=== PATIENT | female | born 1955 | race Caucasian/White ===

== ENCOUNTER → 2016-12-17 | Outpatient (CLI) | payer OTHER ==
[~2016-12-17] MED LIST: CALC-393 PO; EPP3/2 IM; LOSA50TA6 PO; PRED10TA PO
[2016-12-17 15:49] LABS: BASO % 0.4 %; BASO ABS # 0.03 K/uL (0-0.2); COMPLETE YES; EOS % 2.3 %; HEMATOCRIT 37.4 % (37-47); IG% 0.1 %; LYMPH % 29.4 %; LYMPH ABS # 2.04 K/uL (1.2-3.4); MEAN CELL VOLUME 87.8 fL (80-100); MEAN CORPUSCULAR HGB CONC 35.3 g/dl (32-36); MEAN PLATELET VOLUME 9.6 fL (7.4-10.4); MONO % 4.5 %; NEUT % 63.3 %; PLATELET COUNT 296 K/uL (130-400); RED BLOOD COUNT 4.26 M/uL (4.2-5.4); WHITE BLOOD COUNT 6.95 K/uL (4.8-10.8)
[2016-12-17 16:08] LABS: BLOOD UREA NITROGEN 19 mg/dl (7-18); BUN/CREATININE RATIO 18.5 (10-20); CALCIUM 9.2 mg/dl (8.5-10.1); CARBON DIOXIDE 32 mmol/L (21-32); CHLORIDE 107 mmol/L (98-107); GLUCOSE 117 mg/dl (70-99); POTASSIUM 3.7 mmol/L (3.5-5.1); SODIUM 144 mmol/L (136-145)
== END | disposition home or self-care (01) ==
LOC: C.CPL 14:24
PROVIDERS: ATTEND Orthopaedic Surgery
DX: Z01.810 Encounter for preprocedural cardiovascular examination (principal); Z01.812 Encounter for preprocedural laboratory examination; S83.272A Complex tear of lateral meniscus, current injury, left knee, initial encounter; X58.XXXA Exposure to other specified factors, initial encounter; R94.31 Abnormal electrocardiogram [ECG] [EKG]

== ENCOUNTER 2020-12-06 08:30 | Observation (INO) ==
[2020-12-06] MEDS ORDERED: ASPIRIN CHEW 324 MG PO STA (08:46)
[2020-12-06] MEDS: NITROGLYCERIN SL 0.4 MG/TAB TAB SL PRN ×3 (08:54→09:09)
[2020-12-06 09:01] LABS: Basophils # (auto) 0.03 K/uL (0-0.2); Basophils % (auto) 0.5 %; Eosinophils # (auto) 0.18 K/uL (0-0.5); Eosinophils % (auto) 2.9 %; Hematocrit (blood only) 41.3 % (37-47); Hemoglobin 14.6 g/dL (12.0-16.0); Immature Granulocytes # (auto) 0.01 K/uL (0.00-0.02); Immature Granulocytes % (auto) 0.2 %; Lymphocytes # (auto) 1.85 K/uL (1.2-3.4); Lymphocytes % (auto) 29.8 %; Mean Corpuscular Hemoglobin 30.9 pg (25-34); Mean Corpuscular Hgb Conc 35.4 g/dL (32-36); Mean Corpuscular Volume 87.5 fL (80-100); Mean Platelet Volume 9.1 fL (7.4-10.4); Monocytes # (auto) 0.29 K/uL (0.11-0.59); Monocytes % (auto) 4.7 %; Neutrophils # (auto) 3.85 K/uL (1.4-6.5); Neutrophils % (auto) 61.9 %; Platelet Count 292 K/uL (130-400); RDW Coefficient of Variation 12.3 % (11.5-14.5); RDW Standard Deviation 39.5 fL (36.4-46.3); Red Blood Count 4.72 M/uL (4.2-5.4); White Blood Count 6.21 K/uL (4.8-10.8)
--- NOTE | 2020-12-06 09:02 | Emergency Department Note ---
Impression & Plan Chest pain ED Provider Note CHIEF COMPLAINT: Chest pain HISTORY OF PRESENTING ILLNESS: This is a 65-year-old female who presents to the emergency department by private vehicle with complaint of chest pain that has been persistently worsening over the past 1 week. Patient states the pain was initially somewhat intermittent, but became more constant over the past 2 days. She states the pain was severe enough to keep her awake through the night last night and she did not sleep much. She describes the chest pain as a tightness and pressure, it does radiate to her neck/jaw, is worse with exertion and better with rest, and she currently rates the pain 7/10. She has not tried anything f or her pain. She has had some associated shortness of breath and nausea. She denies any lightheadedness or syncope. She denies any vomiting. She denies any cough or hemoptysis. She denies any leg pain or swelling. She denies any history of heart disease for herself and has never had a blood clot. She does note family history, both her father and her sister have had heart attacks. She also has a history of hypertension. She is not a smoker. She denies any other symptoms of headache, neck pain, back pain, abdominal pain, diarrhea or constipation, urinary complaints, or unusual rash. REVIEW OF SYSTEMS: A complete 10 point review of systems was reviewed with the patient with pertinent positives and negatives as per history of present illness. All else were negative. PAST MEDICAL HISTORY: Hypertension, history of , tubal ligation, colonoscopy, appendectomy, partial hysterectomy, carpal tunnel syndrome, parotid gland removal, history of breast cancer in remission SOCIAL HISTORY: Lives at home, she denies tobacco use ALLERGIES: Reviewed in chart and with the patient PHYSICAL EXAM: CONSTITUTIONAL: Pleasant and cooperative. Nontoxic-appearing and in no acute distress. Well appearing and well nourished. HEENT: Normocephalic, atraumatic. NECK: Supple, full active range of motion without discomfort. No JVD RESPIRATORY: Clear to auscultation bilaterally with no wheezing, crackles, rhonchi or stridor. Equal expansion bilaterally. CARDIOVASCULAR: Regular rate and rhythm with no murmurs, rubs or gallops. Normal peripheral perfusion, 2+ distal pulses in all 4 extremities. No pitting edema. GASTROINTESTINAL: Soft, nontender, nondistended. No palpable masses or HSM. Bowel sounds present in all quadrants. MUSCULOSKELETAL: Full range of motion of all joints without discomfort. INTEGUMENTARY: No rash or other significant dermatologic conditions noted. NEUROLOGIC: Alert and oriented X 4 with normal affect. ED COURSE AND MEDICAL DECISION MAKING: CC: Patient presenting with complaint of chest pain DIFFERENTIAL DIAGNOSIS: Includes, but not limited to acute coronary syndrome, pulmonary embolism, aortic dissection, pneumothorax, pericarditis, myocarditis, anxiety, musculoskeletal pain, GERD, costochondritis, pneumonia, among others. INTERPRETATION OF LABS: No leukocytosis, no anemia, normal platelets, no significant electrolyte abnormalities, normal renal function, normal liver enzymes and lipase. Troponin is undetectable. D-dimer negative. IMAGING: XR chest 1V portable CLINICAL HISTORY: Atypical chest pain COMPARISON STUDY: 05/08/2020 FINDINGS: The cardiac and mediastinal contours are normal. There is no evidence of focal pulmonary consolidation. There is no evidence of failure. No pleural effusions are visualized. There is slight bronchovascular crowding the lung bases. There are postsurgical changes present within the cervical spine. IMPRESSION: No active disease in the chest. EK12/06/2020 at 0835: Shows normal sinus rhythm with a rate of 75 bpm, poor waveform interpretation due to artifact, no ST elevation or depression and no ectopy by my interpretation. 12/06/2020 at 0903: Shows normal sinus rhythm with a rate of 86 bpm, normal intervals, no ST elevation or depression and no ectopy, appears unchanged from previous EKG today by my interpretation. MEDICATION RECONCILIATION: I attest that I have personally reviewed the patient's current medication list. INITIAL VITAL SIGNS REVIEW: I reviewed the patient's initial vital signs and interpret them as follows: T: Afebrile; BP: Hypertensive; HR: Within normal limits; RR: Within normal limits; Pulse Ox: Within normal limits on room air. MDM SUMMARY: Patient was evaluated at bedside, history and physical exam performed. Patient is alert and oriented, in no acute distress, resting calmly in stretcher. She is afebrile and nontoxic-appearing. She is noted to be hypertensive. She currently rates the chest pain as 7/10. Cardiac monitoring: An order was placed for continuous cardiac monitoring. The monitor shows a rate of 73 bpm with normal sinus rhythm. EKG reviewed at bedside, no acute ischemic changes. Heart score is 4, moderate risk based on age and risk factors. She is felt to be low risk for PE, a D-dimer is pending. Orders were placed at bedside for labs, 324 chewable aspirin and sublingual nitroglycerin to treat her chest pain, chest x-ray to evaluate for chest pain. Patient discussed with Dr. Stern, who agrees with my assessment, plan, and disposition. Labs and imaging reviewed as above, labs are fairly unremarkable. D-dimer is negative. Initial troponin is undetectable, a second troponin is pending at this time. A repeat EKG at 30 minutes remains un concerning, sinus rhythm with no ischemic changes noted. Chest x-ray is clear with no acute abnormalities noted. And initially had significant improvement in her chest pain after sublingual nitro, then the pain started to come back, so Nitropaste was placed and she had continued improvement in her pain, currently rating as a 3/10 after Nitropaste. I spoke on the phone with Dr. Deleon, [facility], who did feel the patient warranted admission for further evaluation of her chest pain. I spoke with with the [facility] hospitalist, who agreed to evaluate the patient for admission. COVID-19 testing was ordered for the admission. Patient reassessed multiple times throughout ED stay, she has remained hemodynamically stable and her chest pain remains improved. The patient was updated on all results and plan for admission, she was agreeable to this plan. Patient was stable at time of admission. The chart was completed utilizing [employer] Speech voice recognition software. Grammatical errors, random word insertions, pronoun errors, and incomplete sentences are an occasional consequence of this system due to software limitations, ambient noise, and hardware issues. Any formal questions or concerns about the content, text, or information contained within the body of this dictation should be directly addressed to the nurse practitioner for clarification. Past Med/Surg History Medical History Breast cancer (11/25/14) "Status post abnormal right breast mammogram Status post ultrasound-guided biopsy 11/25/2014 revealing infiltrating ductal carcinoma Estrogen receptor, progesterone receptor positive, and HER-2/claritza negative Status post lumpectomy and sentinel lymph node biopsy 12/29/2014 Stage [id number] Status post completion of radiation therapy to the right breast excisional cavity utilizing accelerated partial breast treatment completed 03/11/2015 received 3850 cGy" Hypertension Surgical History H/O colonoscopy H/O tubal ligation H/O: History of appendectomy History of carpal tunnel surgery History of parotid gland removal History of partial hysterectomy Family History Father Heart disease [place] in his late 50s, CABG x 3 Diabetes Sister Heart disease [place] at age 50 Social History Smoking Status: Never smoker Hx Alcohol Use: No Hx Substance Use: No Current Living Situation: Spouse current occupational status: retired Feels Safe at Home: Yes caffeine: Yes Physical Activity Frequency: Daily Allergies Allergies Allergy/AdvReac Type Severity Reaction Status Date / Time tetanus toxoid, adsorbed Allergy Intermediate ARMS FACE Verified 12/06/20 09:02 AND NECK SWELLS UP lisinopril Allergy Unknown cough Verified 12/06/20 09:02 Home Meds Home Medications Medication Instructions Recorded Confirmed calcium carbonate [Calcium 500] 500 mg PO QAM 05/08/20 12/06/20 losartan 100 mg PO QAM 05/08/20 12/06/20 sodium chloride [Saline Nasal] 1 spray INTRANASAL TID 12/06/20 12/06/20 Results & Data (ED) Vital Signs Vital Signs - 24 hr 12/06/20 08:35 12/06/20 08:56 12/06/20 09:01 Temperature 36.7 C Temperature Source Oral Pulse Rate 76 83 Pulse Rate from SpO2 Sensor 85 Respiratory Rate 16 14 Blood Pressure 198/94 H 186/92 H Blood Pressure Mean 128 123 Pulse Oximetry 99 97 97 Oxygen Delivery Method Room Air Room Air Sepsis Recent Fever Within 48 Hours No Sepsis New/Unexplained Change in Mental Status N/A Sepsis Action Taken by Nursing No Action Required 12/06/20 09:10 12/06/20 09:20 12/06/20 09:31 Temperature Temperature Source Pulse Rate 82 99 H 84 Pulse Rate from SpO2 Sensor 83 103 H 82 Respiratory Rate 16 17 16 Blood Pressure 164/92 H 175/90 H 156/96 H Blood Pressure Mean 116 118 116 Pulse Oximetry 97 100 98 Oxygen Delivery Method Sepsis Recent Fever Within 48 Hours Sepsis New/Unexplained Change in Mental Status Sepsis Action Taken by Nursing 12/06/20 10:00 12/06/20 10:30 12/06/20 11:00 Temperature Temperature Source Pulse Rate 67 65 67 Pulse Rate from SpO2 Sensor 67 66 Respiratory Rate 11 L 16 12 Blood Pressure 151/95 H 158/87 H 142/94 H Blood Pressure Mean 113 110 110 Pulse Oximetry 98 100 Oxygen Delivery Method Sepsis Recent Fever Within 48 Hours Sepsis New/Unexplained Change in Mental Status Sepsis Action Taken by Nursing 12/06/20 11:30 12/06/20 12:01 12/06/20 12:30 Temperature Temperature Source Pulse Rate 68 69 70 Pulse Rate from SpO2 Sensor 65 71 69 Respiratory Rate 15 21 17 Blood Pressure 162/98 H 170/108 H 173/95 H Blood Pressure Mean 119 128 121 Pulse Oximetry 100 98 99 Oxygen Delivery Method Sepsis Recent Fever Within 48 Hours Sepsis New/Unexplained Change in Mental Status Sepsis Action Taken by Nursing Laboratory Data Result diagrams: 12/06/20 08:47 12/06/20 08:47 Lab Results 12/06/20 12/06/20 12/06/20 Range/Units 08:47 08:47 08:47 WBC 6.21 (4.8-10.8) K/uL RBC 4.72 (4.2-5.4) M/uL Hgb 14.6 (12.0-16.0) g/dL Hct 41.3 (37-47) % MCV 87.5 (80-100) fL MCH 30.9 (25-34) pg MCHC 35.4 (32-36) g/dL RDW Std Deviation 39.5 (36.4-46.3) fL RDW Coeff of Nory 12.3 (11.5-14.5) % Plt Count 292 (130-400) K/uL MPV 9.1 (7.4-10.4) fL Immature Gran % (Auto) 0.2 % Neut % (Auto) 61.9 % Lymph % (Auto) 29.8 % [place] % (Auto) 4.7 % Eos % (Auto) 2.9 % Baso % (Auto) 0.5 % Neut # (Auto) 3.85 (1.4-6.5) K/uL Lymph # (Auto) 1.85 (1.2-3.4) K/uL [place] # (Auto) 0.29 (0.11-0.59) K/uL Eos # (Auto) 0.18 (0-0.5) K/uL Baso # (Auto) 0.03 (0-0.2) K/uL Immature Gran # (Auto) 0.01 (0.00-0.02) K/uL D-Dimer 480 (0-500) ug/L FEU Sodium 138 (136-145) mmol/L Potassium 3.5 (3.5-5.1) mmol/L Chloride 104 (98-107) mmol/L Carbon Dioxide 28 (21-32) mmol/L Anion Gap 6.0 (3-11) BUN 14 (7-18) mg/dl Creatinine 0.93 (0.6-1.2) mg/dl Est Cr Clr Drug Dosing 64.3 ml/min Est GFR ( Amer) 75.3 Est GFR (Non-Af Amer) 64.9 BUN/Creatinine Ratio 15.1 (10-20) Glucose 130 H (70-99) mg/dl Calcium 9.7 (8.5-10.1) mg/dl Total Bilirubin 0.8 (0.2-1) mg/dl AST 17 (15-37) U/L ALT 29 (12-78) U/L Alkaline Phosphatase 103 (45-117) U/L Troponin I < 0.015 (0-0.045) ng/ml Total Protein 7.9 (6.4-8.2) gm/dl Albumin 3.9 (3.4-5.0) gm/dl Globulin 4.0 (2.5-4.0) gm/dl Albumin/Globulin Ratio 1.0 (0.9-2) Lipase 111 (73-393) U/L COVID-19 Eval Order SARS-CoV-2, RNA, NAAT (NEGATIVE) 12/06/20 12/06/20 12/06/20 Range/Units 11:07 11:53 11:53 WBC (4.8-10.8) K/uL RBC (4.2-5.4) M/uL Hgb (12.0-16.0) g/dL Hct (37-47) % MCV (80-100) fL MCH (25-34) pg MCHC (32-36) g/dL RDW Std Deviation (36.4-46.3) fL RDW Coeff of Nory (11.5-14.5) % Plt Count (130-400) K/uL MPV (7.4-10.4) fL Immature Gran % (Auto) % Neut % (Auto) % Lymph % (Auto) % [place] % (Auto) % Eos % (Auto) % Baso % (Auto) % Neut # (Auto) (1.4-6.5) K/uL Lymph # (Auto) (1.2-3.4) K/uL [place] # (Auto) (0.11-0.59) K/uL Eos # (Auto) (0-0.5) K/uL Baso # (Auto) (0-0.2) K/uL Immature Gran # (Auto) (0.00-0.02) K/uL D-Dimer (0-500) ug/L FEU Sodium (136-145) mmol/L Potassium (3.5-5.1) mmol/L Chloride (98-107) mmol/L Carbon Dioxide (21-32) mmol/L Anion Gap (3-11) BUN (7-18) mg/dl Creatinine (0.6-1.2) mg/dl Est Cr Clr Drug Dosing ml/min Est GFR ( Amer) Est GFR (Non-Af Amer) BUN/Creatinine Ratio (10-20) Glucose (70-99) mg/dl Calcium (8.5-10.1) mg/dl Total Bilirubin (0.2-1) mg/dl AST (15-37) U/L ALT (12-78) U/L Alkaline Phosphatase (45-117) U/L Troponin I < 0.015 (0-0.045) ng/ml Total Protein (6.4-8.2) gm/dl Albumin (3.4-5.0) gm/dl Globulin (2.5-4.0) gm/dl Albumin/Globulin Ratio (0.9-2) Lipase (73-393) U/L COVID-19 Eval [email or web address] SARS-CoV-2, RNA, NAAT NEGATIVE (NEGATIVE) Administered Medications Morphine Sulfate (Morphine Sulfate 2 Mg/Ml Carp) 2 mg IV Q2H PRN PRN Reason: chest pain Stop: 12/20/20 13:06 Last Admin: 12/06/20 14:16 Dose: 2 mg Documented by: [id number] Discontinued Medications Aspirin (Aspirin Chew 324 Mg) 324 mg PO NOW STA Stop: 12/06/20 08:47 Last Admin: 12/06/20 08:54 Dose: 324 mg Documented by: [id number] Ioversol (Optiray 320 125ml) 119 ml IV ONCE ONE Stop: 12/06/20 15:58 Last Admin: 12/06/20 15:57 Dose: 119 ml Documented by: [id number] Nitroglycerin (Nitroglycerin Sl 0.4 Mg/Tab Tab) 0.4 mg SL UD PRN PRN Reason: Chest Pain Stop: 01/05/21 08:45 Last Admin: 12/06/20 09:09 Dose: 0.4 mg Documented by: [id number] Admin: 12/06/20 09:02 Dose: 0.4 mg Documented by: [id number] Admin: 12/06/20 08:54 Dose: 0.4 mg Documented by: [id number] Nitroglycerin (Nitroglycerin 2% Ointment 30gm Tube) 1 inch EXT NOW ONE Stop: 12/06/20 09:41 Last Admin: 12/06/20 09:44 Dose: 1 inch Documented by: [id number] Discharge Plan Visit Data Chief Complaint: Chest Pain Stated Complaint: CHEST PAIN - DR. REFERRED ED Provider: Tino Stern ED Midlevel Provider: Kaylin Mayo Discharge Problem: Chest pain Patient Disposition: Admitted As Inpatient Condition: Good Discharge Instructions Interventions: ED Discharge Assessment Last Done: 12/06/20 14:39
[2020-12-06 09:18] LABS: Alanine Aminotransferase 29 U/L (12-78); Albumin Level 3.9 gm/dl (3.4-5.0); Aspartate Aminotransferase 17 U/L (15-37); BUN Creatinine Ratio 15.1 (10-20); Blood Urea Nitrogen 14 mg/dl (7-18); Calcium 9.7 mg/dl (8.5-10.1); Carbon Dioxide 28 mmol/L (21-32); Chloride 104 mmol/L (98-107); Creatinine Clr Calc Pharmacy 64.3 ml/min; Est GFR (African American) 75.3; Est GFR (Non-African American) 64.9; Glucose 130 mg/dl (70-99); Lipase 111 U/L (73-393); Potassium 3.5 mmol/L (3.5-5.1); Sodium 138 mmol/L (136-145)
[2020-12-06 09:23] LABS: Alkaline Phosphatase 103 U/L (45-117); Bilirubin,Total 0.8 mg/dl (0.2-1); Total Protein 7.9 gm/dl (6.4-8.2); Troponin I < 0.015 ng/ml (0-0.045)
[2020-12-06 09:24] LABS: D Dimer 480 ug/L FEU (0-500)
--- NOTE | 2020-12-06 09:30 | XRay Report ---
XR chest 1V portable CLINICAL HISTORY: Atypical chest pain COMPARISON STUDY: 05/08/2020 FINDINGS: The cardiac and mediastinal contours are normal. There is no evidence of focal pulmonary co nsolidation. There is no evidence of failure. No pleural effusions are visualized.[ There is slight bronchovascular crowding the lung bases. There are postsurgical changes present withi n the cervical spine. IMPRESSION: No active disease in the chest. ACT 112: Negative or not required by law. Electronically signed by: Zack Guzmán M.D. 12/06/2020 9:29 AM
[2020-12-06] MEDS ORDERED: NITROGLYCERIN 2% OINTMENT 30GM TUBE EXT ONE (09:40)
[2020-12-06] MEDS ORDERED: MoRPHine SULFATE 2 MG/ML CARP IV PRN (13:07)
--- NOTE | 2020-12-06 13:31 | History & Physical Report ---
Date of Service December 06, 2020 Assessment & Plan (1) Chest pain: Ongoing chest pain x 1 week but changed over past two days - worse with exertion. Pt with risk factors for cardiac disease including HTN, obesity, and family history so will admit for observation and further work-up - Trend troponin - Monitor on telemetry - Continue nitro paste for CP/elevated BP - Check ECHO - PRN morphine if pain uncontrolled with nitro - Consult cardiology for additional recommendations - Lipid panel in AM (2) Hypertension: - Continue outpatient lorsartan Pt seen and reviewed with collaborating physician, Dr. Banegas. Plan of care discussed and as outlined above. Code status: Full code Alejandro Burton PA-C History of Present Illness Chief Complaint: Chest pain x 1 week Primary Care Provider: Rex Gilliam MD This is a 65 y/o female with a PMH of HTN who presents to the ED with chest pain x 1 week. The pt reports the onset of constant aching chest discomfort and tightness in her left upper chest about one week ago. About two days ago, the pain became a "hot stabbing" pain. Since then, it has gradually increased in severity and now radiates to her left jaw and through to her back at times. She has had associated nausea but no vomiting. She denies shortness of breath, dizziness, syncope, palpitations, ROSS, heartburn or indigestion. Pain is worse with exertion and with deep breathing but improves with lying flat. Pt is typically pretty active and does a two mile hike each morning. 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 She had similar pain in 2012 but not as severe - work-up at that time including stress test was negative. Her father and sister both had MIs in their 50s. Initial pain in the ED was a 7/10. After nitro given in ED, rates discomfort as 3/10 although starting to increase again slightly to 4-5/10. Allergies Allergy/AdvReac Type Severity Reaction Status Date / Time tetanus toxoid, adsorbed Allergy Intermediate ARMS FACE Verified 12/06/20 09:02 AND NECK SWELLS UP lisinopril Allergy Unknown cough Verified 12/06/20 09:02 Home Medications Medication Instructions Recorded Confirmed Type calcium carbonate [Calcium 500] 500 mg PO QAM 05/08/20 12/06/20 History losartan 100 mg PO QAM 05/08/20 12/06/20 History sodium chloride [Saline Nasal] 1 spray INTRANASAL TID 12/06/20 12/06/20 History Past Med/Surg History Medical History Breast cancer (11/25/14) "Status post abnormal right breast mammogram Status post ultrasound-guided biopsy 11/25/2014 revealing infiltrating ductal carcinoma Estrogen receptor, progesterone receptor positive, and HER-2/claritza negative Status post lumpectomy and sentinel lymph node biopsy 12/29/2014 Stage [id number] Status post completion of radiation therapy to the right breast excisional cavity utilizing accelerated partial breast treatment completed 03/11/2015 received 3850 cGy" Hypertension Surgical History H/O colonoscopy H/O tubal ligation H/O: History of appendectomy History of carpal tunnel surgery History of parotid gland removal History of partial hysterectomy Family History Father Heart disease [place] in his late 50s, CABG x 3 Diabetes Sister Heart disease [place] at age 50 Social History Smoking Status: Never smoker Hx Alcohol Use: No Hx Substance Use: No Preferred Language: Cymro Communication Ability: Effective Director [employer] Required: No Beliefs That Will Affect Care: None Current Living Situation: Spouse current occupational status: retired Other Information That Helps Us Care for You: No Feels Safe at Home: Yes Safety Concerns: Feels Safe At This Time caffeine: Yes Physical Activity Frequency: Daily Assistive Devices: Glasses and Hearing Aid - Bilateral Review of Systems Review of Systems: All systems reviewed & are unremarkable except as noted in HPI & below Constitutional: no fever, no chills, no sweats and no weight loss Eyes: no diplopia and no worsening vision Ear, Nose, Mouth, Throat: no nasal congestion, no sore throat and no dysphagia Respiratory: + pain on inspiration; no cough, no chest congestion, no dyspnea and no wheezing Cardiovascular: as per Subjective / HPI and + edema (by end of day, improves overnight); no dyspnea on exertion, no palpitations and no lightheadedness Gastrointestinal: as per Subjective / HPI and + nausea; no abdominal pain, no vomiting, no diarrhea/loose stools and no blood in stools Genitourinary: no dysuria, no urinary frequency and no hematuria Musculoskeletal: no back pain, no neck pain and no muscle weakness Integumentary: no rash Neurologic: no seizure-like activity, no dizziness, no syncope, no headache(s) and no confusion Psychiatric: no depression Physical Exam Constitutional: WD/WN, vitals as above no acute distress Eyes: + anicteric sclerae; no conjunctival abnormality Neck: trachea midline Respiratory: no respiratory distress and no labored breathing Auscultation: lungs clear to auscultation bilaterally; no rales, no rhonchi and no wheezes Cardiovascular: Rate/Rhythm: + abnormal rate and + abnormal rhythm Heart Sounds: no gallop, no murmur and no cardiac rub Vessels: posterior tibial pulses present and radial pulses present; no carotid bruit Extremities: no calf tenderness and no pedal edema Gastrointestinal (Abdomen): Inspection/Auscultation: normal bowel sounds; abdomen not distended Percussion/Palpation: abdomen soft; abdomen nontender Musculoskeletal: Head/Neck/Chest: normocephalic, head atraumatic and neck supple; no chest tenderness Skin: no rashes, warm and dry no jaundice Neurologic: no focal motor deficits Psychiatric: A+Ox3, euthymic affect Results & Data Results & Data ([facility]) Vital Signs (Past 12 Hours) Vital Signs Temp Pulse Resp BP Pulse Ox 12/06/20 13:00 73 14 153/87 H 99 12/06/20 12:30 70 17 173/95 H 99 12/06/20 12:01 69 21 170/108 H 98 12/06/20 11:30 68 15 162/98 H 100 12/06/20 11:00 67 12 142/94 H 12/06/20 10:30 65 16 158/87 H 100 12/06/20 10:00 67 11 L 151/95 H 98 12/06/20 09:31 84 16 156/96 H 98 12/06/20 09:20 99 H 17 175/90 H 100 12/06/20 09:10 82 16 164/92 H 97 12/06/20 09:01 83 14 186/92 H 97 12/06/20 08:56 97 12/06/20 08:35 36.7 C 76 16 198/94 H 99 Laboratory Results Laboratory Results - last 24 hr 12/06/20 12/06/20 12/06/20 08:47 08:47 08:47 WBC 6.21 RBC 4.72 Hgb 14.6 Hct 41.3 MCV 87.5 MCH 30.9 MCHC 35.4 RDW Std Deviation 39.5 RDW Coeff of Nory 12.3 Plt Count 292 MPV 9.1 Immature Gran % (Auto) 0.2 Neut % (Auto) 61.9 Lymph % (Auto) 29.8 [place] % (Auto) 4.7 Eos % (Auto) 2.9 Baso % (Auto) 0.5 Neut # (Auto) 3.85 Lymph # (Auto) 1.85 [place] # (Auto) 0.29 Eos # (Auto) 0.18 Baso # (Auto) 0.03 Immature Gran # (Auto) 0.01 D-Dimer 480 Sodium 138 Potassium 3.5 Chloride 104 Carbon Dioxide 28 Anion Gap 6.0 BUN 14 Creatinine 0.93 Est Cr Clr Drug Dosing 64.3 Est GFR ( Amer) 75.3 Est GFR (Non-Af Amer) 64.9 BUN/Creatinine Ratio 15.1 Glucose 130 H Calcium 9.7 Total Bilirubin 0.8 AST 17 ALT 29 Alkaline Phosphatase 103 Troponin I < 0.015 Total Protein 7.9 Albumin 3.9 Globulin 4.0 Albumin/Globulin Ratio 1.0 Lipase 111 COVID-19 Eval Order SARS-CoV-2, RNA, NAAT 12/06/20 12/06/20 12/06/20 11:07 11:53 11:53 WBC RBC Hgb Hct MCV MCH MCHC RDW Std Deviation RDW Coeff of Nory Plt Count MPV Immature Gran % (Auto) Neut % (Auto) Lymph % (Auto) [place] % (Auto) Eos % (Auto) Baso % (Auto) Neut # (Auto) Lymph # (Auto) [place] # (Auto) Eos # (Auto) Baso # (Auto) Immature Gran # (Auto) D-Dimer Sodium Potassium Chloride Carbon Dioxide Anion Gap BUN Creatinine Est Cr Clr Drug Dosing Est GFR ( Amer) Est GFR (Non-Af Amer) BUN/Creatinine Ratio Glucose Calcium Total Bilirubin AST ALT Alkaline Phosphatase Troponin I < 0.015 Total Protein Albumin Globulin Albumin/Globulin Ratio Lipase COVID[facility] SARS-CoV-2, RNA, NAAT NEGATIVE Diagnostic Findings Chest X-ray 12/06/20 - IMPRESSION: No active disease in the chest. Medications Administered Nitroglycerin (Nitroglycerin Sl 0.4 Mg/Tab Tab) 0.4 mg SL UD PRN PRN Reason: Chest Pain Stop: 01/05/21 08:45 Last Admin: 12/06/20 09:09 Dose: 0.4 mg Documented by: [id number] Admin: 12/06/20 09:02 Dose: 0.4 mg Documented by: [id number] Admin: 12/06/20 08:54 Dose: 0.4 mg Documented by: [id number] Discontinued Medications Aspirin (Aspirin Chew 324 Mg) 324 mg PO NOW STA Stop: 12/06/20 08:47 Last Admin: 12/06/20 08:54 Dose: 324 mg Documented by: [id number] Nitroglycerin (Nitroglycerin 2% Ointment 30gm Tube) 1 inch EXT NOW ONE Stop: 12/06/20 09:41 Last Admin: 12/06/20 09:44 Dose: 1 inch Documented by: [id number] Code Status & VTE Plan VTE Prophylaxis Plan VTE Prophylaxis will be ordered: Yes Supervising Physician Co-Signing Physician Notes 65-year-old female with CAD risk factors including hypertension and family history who presents with severe chest pain for 1 week that has progressively been worse. She reports her pain is worse with exertion and better with rest although it has not gone away completely since it started approximately 1 week ago. Cardiology was consulted and performed a abbreviated bedside echocardiogram revealing no significant valvular disease and normal left ventricular function. Physical exam as listed above. Continue plan with serial cardiac enzymes overnight and monitored on telemetry. Appreciate cardiology recommendations with respect to risk stratification with stress test in a.m. DO Bassam (1) Chest pain Chest pain type: unspecified Qualified Code(s): R07.9 - Chest pain, unspecified (2) Hypertension Hypertension type: essential hypertension Qualified Code(s): I10 - Essential (primary) hypertension
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
[2020-12-06] MEDS ORDERED: SODIUM CHLORIDE 0.65% NA SOLN 45 ML (OCEAN) PRN (15:39)
[2020-12-06] MEDS ORDERED: OPTIRAY 320 125ml IV ONE (15:57)
--- NOTE | 2020-12-06 16:15 | CT Scan Report ---
CT ANGIOGRAPHY OF THE CHEST, PULMONARY EMBOLUS PROTOCOL CLINICAL HISTORY: chest pain. pleuritic COMPARISON STUDY: Chest radiograph December 06, 2020. TECHNIQUE: Following IV administration of 119 mL of Optiray-320, helical axial images of the chest we re obtained utilizing the pulmonary embolus protocol. Maximal intensity projections and sagittal and coronal reformats were viewed on an independent 3D workstation. IV contrast was administered withou t complication. Automated exposure control was utilized for the study. A dose lowering technique wa s utilized adhering to the principles of ALARA. CT DOSE: 392.53 mGy.cm FINDINGS: No pulmonary emboli are identified. There is no thoracic aortic dissection. Mild cardiomeg elda is noted. No enlarged axillary, mediastinal or hilar lymph nodes are present. Post therapy change s within the right breast are noted. There is no consolidation to suggest pneumonia. No pneumothorax or pleural effusion is noted. Mild groundglass opacities reflect atelectasis. Bony thorax is unremark able. Visualized portions of the upper abdomen demonstrate probable hepatic steatosis. IMPRESSION: 1. No pulmonary emboli identified. 2. No acute process within the chest. 3. Mild cardiomegaly. 4. Probable hepatic steatosis. ACT 112: Negative or not required by law. Electronically signed by: Rodrick Gonzalez M.D. 12/06/2020 4:14 PM
[2020-12-06] MEDS ORDERED: MoRPHine SULFATE 2 MG/ML CARP IV STA (17:37)
--- NOTE | 2020-12-07 06:03 | Electrocardiogram Report ---
Test Reason : Blood Pressure : / mmHG Vent. Rate : 075 BPM Atrial Rate : 075 BPM P-R Int : 140 ms QRS Dur : 076 ms QT Int : 396 ms P-R-T Axes : 038 061 033 degrees QTc Int : 442 ms Normal sinus rhythm Nonspecific ST and T wave abnormality Abnormal ECG When compared with ECG of 08-MAY-2020 18:23, No significant change Confirmed by Carlos Roy ([id number]) on 12/07/2020 6:02:58 AM Referred By: ER Confirmed By:Carlos Roy
--- NOTE | 2020-12-07 06:05 | Electrocardiogram Report ---
Test Reason : Blood Pressure : / mmHG Vent. Rate : 086 BPM Atrial Rate : 086 BPM P-R Int : 138 ms QRS Dur : 080 ms QT Int : 382 ms P-R-T Axes : 036 050 045 degrees QTc Int : 457 ms Normal sinus rhythm Nonspecific T wave abnormality Abnormal ECG When compared with ECG of 06-DEC-2020 08:35, No significant change Confirmed by Carlos Roy ([id number]) on 12/07/2020 6:05:13 AM Referred By: Rex Gilliam Confirmed By:Carlos Roy
[2020-12-07 06:48] LABS: Basophils # (auto) 0.02 K/uL (0-0.2); Basophils % (auto) 0.3 %; Eosinophils # (auto) 0.17 K/uL (0-0.5); Eosinophils % (auto) 2.6 %; Hematocrit (blood only) 40.4 % (37-47); Hemoglobin 14.2 g/dL (12.0-16.0); Immature Granulocytes # (auto) 0.01 K/uL (0.00-0.02); Immature Granulocytes % (auto) 0.2 %; Lymphocytes # (auto) 1.64 K/uL (1.2-3.4); Lymphocytes % (auto) 25.4 %; Mean Corpuscular Hemoglobin 31.3 pg (25-34); Mean Corpuscular Hgb Conc 35.1 g/dL (32-36); Mean Platelet Volume 9.1 fL (7.4-10.4); Monocytes # (auto) 0.48 K/uL (0.11-0.59); Monocytes % (auto) 7.4 %; Neutrophils # (auto) 4.14 K/uL (1.4-6.5); Neutrophils % (auto) 64.1 %; Platelet Count 261 K/uL (130-400); RDW Coefficient of Variation 12.4 % (11.5-14.5); RDW Standard Deviation 39.7 fL (36.4-46.3); Red Blood Count 4.54 M/uL (4.2-5.4); White Blood Count 6.46 K/uL (4.8-10.8)
[2020-12-07 07:33] LABS: Albumin Globulin Ratio 0.9 (0.9-2); Albumin Level 3.5 gm/dl (3.4-5.0); BUN Creatinine Ratio 16.4 (10-20); Bilirubin,Total 0.8 mg/dl (0.2-1); Calcium 9.5 mg/dl (8.5-10.1); Creatinine Clr Calc Pharmacy 61.4 ml/min; Est GFR (African American) 70.7; Globulin 3.7 gm/dl (2.5-4.0); Potassium 4.3 mmol/L (3.5-5.1); Total Protein 7.2 gm/dl (6.4-8.2)
[2020-12-07] MEDS ORDERED: LOSARTAN POTASSIUM 50 MG TAB PO SCH (09:00)
--- NOTE | 2020-12-07 12:43 | Hospitalist Progress Note ---
Date of Service December 07, 2020 Assessment & Plan (1) Chest pain: Ongoing chest pain x 1 week but changed over past two days - worse with exertion. Pt with risk factors for cardiac disease including HTN, obesity, and family history so will admit for observation and further work-up As significant precordial tenderness and the pain could be secondary to costochondritis Serial troponins and EKG remain unremarkable for any ACS Continue nitro paste for CP/elevated BP Check ECHO: Left ventricle is normal in size, there is mild concentric LV hypertrophy, the basal septum is thickened and angulated consistent with sigmoid septum, LV systolic function is normal with EF 55 to 60%, no significant valvular disease, aortic root is normal in size, there is no pericardial effusion and there is grade 1 diastolic dysfunction Lipid profile noted Appreciate cardiology input and recommendation Awaiting stress test this morning (2) Hypertension: Continue outpatient lorsartan May need to add another antihypertensive to control the blood pressure Await cardiology evaluation for that Pt seen and reviewed with collaborating physician, Dr. Banegas. Plan of care discussed and as outlined above. Code status: Full code Admission and Anticipated Discharge Date Admission Date: December 06, 2020 Subjective 12/07/2020 The patient was seen and examined in medical telemetry unit She has history of hypertension and was admitted with precordial chest pain for about 1 week without any significant associated symptoms He still has minimal precordial pain which is worse with deep inspiration and movement getting radiation Review of Systems Review of Systems: All systems reviewed and are unremarkable except as noted below Cardiovascular: + chest pain (Precordial chest pain); no radiating jaw, neck or arm pain and no palpitations Physical Exam Physical Exam: Lying in bed comfortably Constitutional: well developed, well nourished and + obese Eyes: PERRL, conjunctivae normal, anicteric sclerae ENMT: external ear and nose normal, oropharynx normal Neck: trachea midline, no thyromegaly Respiratory: no respiratory distress Auscultation: lungs clear to auscultation bilaterally Cardiovascular: Rate/Rhythm: regular rate and regular rhythm Heart Sounds: no murmur Extremities: no edema Precordial tenderness Gastrointestinal (Abdomen): Inspection/Auscultation: normal bowel sounds; abdomen not distended Percussion/Palpation: abdomen soft; abdomen nontender Musculoskeletal: No acute arthritis in any joints Neurologic: Alert, awake and oriented x3 Psychiatric: A+Ox3, euthymic affect Lymphatic: no cervical or axillary lymphadenopathy Results & Data Results & Data ([facility]) Vital Signs (Past 12 Hours) Vital Signs Temp Pulse Pulse Resp BP BP Pulse Ox 12/07/20 11:08 36.9 C 79 20 169/82 H 97 12/07/20 08:02 77 12/07/20 07:17 36.9 C 69 18 161/78 H 100 12/07/20 04:00 36.9 C 65 18 178/92 H 98 Laboratory Results Short CBC 12/07/20 Range/Units 06:17 WBC 6.46 (4.8-10.8) K/uL Hgb 14.2 (12.0-16.0) g/dL Hct 40.4 (37-47) % Plt Count 261 (130-400) K/uL BMP 12/07/20 06:17 Sodium 137 Potassium 4.3 D Chloride 105 Carbon Dioxide 29 BUN 16 Creatinine 0.98 Glucose 129 H Calcium 9.5 Cardiac Enzymes 12/06/20 12/06/20 Range/Units 16:11 21:31 Troponin I < 0.015 < 0.015 (0-0.045) ng/ml Liver Function 12/07/20 Range/Units 06:17 Total Bilirubin 0.8 (0.2-1) mg/dl AST 16 (15-37) U/L ALT 27 (12-78) U/L Alkaline Phosphatase 93 (45-117) U/L Albumin 3.5 (3.4-5.0) gm/dl Medications Administered Current Inpatient Medications Losartan Potassium (Losartan Potassium 50 Mg Tab) 100 mg PO [facility] Stop: 01/06/21 08:59 Last Admin: 12/07/20 10:53 Dose: 100 mg Documented by: Morphine Sulfate (Morphine Sulfate 2 Mg/Ml Carp) 2 mg IV Q2H PRN PRN Reason: chest pain Stop: 12/20/20 13:06 Last Admin: 12/06/20 14:16 Dose: 2 mg Documented by: Sodium Chloride (Sodium Chloride 0.65% Na Soln 45 Ml ([place])) 1 sprays NA TID PRN PRN Reason: Congestion Stop: 01/05/21 15:38 (1) Hypertension Hypertension type: essential hypertension Qualified Code(s): I10 - Essential (primary) hypertension
[2020-12-07] MEDS ORDERED: amLODIPine BESYLATE 5 MG TAB PO SCH (13:15)
--- NOTE | 2020-12-07 15:25 | Cardiology Progress Note ---
Date of Service December 07, 2020 Assessment & Plan (1) Chest pain: 65-year-old female without prior history of cardiac disease but cardiovascular risk factors of hypertension and family history of heart disease who presents with persistent pain of nearly 1 days duration and stuttering sharp pain x1 week. Symptoms have some atypical features exacerbated with deep inspiration and movement. Initial evaluations have included [address] segment abnormalities and 2 troponins nondetectable. Echocardiogram performed at bedside reveals normal left her function normal aortic root size no significant valvular disease CTA of the chest unrevealing Symptoms and exam consistent with musculoskeletal pain. Recommendations treat discomfort. Treat hypertension as ordered with amlodipine No further cardiac testing indicated (2) Hypertension: Admission and Anticipated Discharge Date Admission Date: December 06, 2020 Subjective Patient seen and examined, chart, medications, telemetry reviewed. No cardiac issues observed after extensive testing including serial cardiac enzymes and EKGs. CTA of the chest without pulmonary embolus or pericardial effusion. Echocardiogram with normal LV function and wall motion Symptoms have improved but still present with movement and deep inspiration likely musculoskeletal etiology Review of Systems Review of Systems: All systems reviewed & are unremarkable except as noted in HPI & below Physical Exam Constitutional: WD/WN, vitals as above + obese Eyes: PERRL, conjunctivae normal, anicteric sclerae ENMT: external ear and nose normal, oropharynx normal Neck: trachea midline, no thyromegaly Respiratory: normal respiratory effort, lungs clear to auscultation Cardiovascular: Rate/Rhythm: regular rate and regular rhythm Heart Sounds: normal S1 and normal S2; no gallop and no murmur Palpation: normal PMI Vessels: normal carotid upstroke and radial pulses present; no JVD and no carotid bruit Extremities: + edema (Trace) Chest (Breasts): Additional Comments: Tender to palpation in Gastrointestinal (Abdomen): normal bowel sounds, soft, nontender, no hepatosplenomegaly Musculoskeletal: no cyanosis or clubbing, extremities motor strength 5/5 Skin: no rashes, warm and dry Neurologic: PERRL, EOMI, accommodation nl, no face palsy, no dysarthria Psychiatric: A+Ox3, euthymic affect Results & Data ([facility]) Vital Signs (Past 12 Hours) Vital Signs Temp Pulse Pulse Resp BP BP Pulse Ox 12/07/20 15:10 36.9 C 79 20 169/82 H 161/78 H 97 12/07/20 11:08 36.9 C 79 20 169/82 H 97 12/07/20 08:02 77 12/07/20 07:17 36.9 C 69 18 161/78 H 100 12/07/20 04:00 36.9 C 65 18 178/92 H 98 Laboratory Results Laboratory Results - last 24 hr 12/06/20 12/06/20 12/07/20 16:11 21:31 06:17 WBC 6.46 RBC 4.54 Hgb 14.2 Hct 40.4 MCV 89.0 MCH 31.3 MCHC 35.1 RDW Std Deviation 39.7 RDW Coeff of Nory 12.4 Plt Count 261 MPV 9.1 Immature Gran % (Auto) 0.2 Neut % (Auto) 64.1 Lymph % (Auto) 25.4 [place] % (Auto) 7.4 Eos % (Auto) 2.6 Baso % (Auto) 0.3 Neut # (Auto) 4.14 Lymph # (Auto) 1.64 [place] # (Auto) 0.48 Eos # (Auto) 0.17 Baso # (Auto) 0.02 Immature Gran # (Auto) 0.01 Sodium Potassium Chloride Carbon Dioxide Anion Gap BUN Creatinine Est Cr Clr Drug Dosing Est GFR ( Amer) Est GFR (Non-Af Amer) BUN/Creatinine Ratio Glucose Calcium Total Bilirubin AST ALT Alkaline Phosphatase Troponin I < 0.015 < 0.015 Total Protein Albumin Globulin Albumin/Globulin Ratio Triglycerides Cholesterol LDL Cholesterol, Calc VLDL Cholesterol, Calc HDL Cholesterol Cholesterol/HDL Ratio 12/07/20 06:17 WBC RBC Hgb Hct MCV MCH MCHC RDW Std Deviation RDW Coeff of Nory Plt Count MPV Immature Gran % (Auto) Neut % (Auto) Lymph % (Auto) [place] % (Auto) Eos % (Auto) Baso % (Auto) Neut # (Auto) Lymph # (Auto) [place] # (Auto) Eos # (Auto) Baso # (Auto) Immature Gran # (Auto) Sodium 137 Potassium 4.3 D Chloride 105 Carbon Dioxide 29 Anion Gap 4.0 BUN 16 Creatinine 0.98 Est Cr Clr Drug Dosing 61.4 Est GFR ( Amer) 70.7 Est GFR (Non-Af Amer) 61.0 BUN/Creatinine Ratio 16.4 Glucose 129 H Calcium 9.5 Total Bilirubin 0.8 AST 16 ALT 27 Alkaline Phosphatase 93 Troponin I Total Protein 7.2 Albumin 3.5 Globulin 3.7 Albumin/Globulin Ratio 0.9 Triglycerides 102 Cholesterol 183 LDL Cholesterol, Calc 98 VLDL Cholesterol, Calc 20 HDL Cholesterol 65 Cholesterol/HDL Ratio 3 Medications Administered Current Medications Amlodipine Besylate (Amlodipine Besylate 5 Mg Tab) 5 mg PO [facility] Stop: 01/06/21 13:14 Last Admin: 12/07/20 14:48 Dose: 5 mg Documented by: Losartan Potassium (Losartan Potassium 50 Mg Tab) 100 mg PO [facility] Stop: 01/06/21 08:59 Last Admin: 12/07/20 10:53 Dose: 100 mg Documented by: Morphine Sulfate (Morphine Sulfate 2 Mg/Ml Carp) 2 mg IV Q2H PRN PRN Reason: chest pain Stop: 12/20/20 13:06 Last Admin: 12/06/20 14:16 Dose: 2 mg Documented by: Sodium Chloride (Sodium Chloride 0.65% Na Soln 45 Ml ([place])) 1 sprays NA TID PRN PRN Reason: Congestion Stop: 01/05/21 15:38 (1) Hypertension Hypertension type: essential hypertension Qualified Code(s): I10 - Essential (primary) hypertension
--- NOTE | 2020-12-08 08:01 | Discharge Summary ---
Date of Service December 08, 2020 Admission HPI Per Admitting Provider This is a 65 y/o female with a PMH of HTN who presents to the ED with chest pain x 1 week. The pt reports the onset of constant aching chest discomfort and tightness in her left upper chest about one week ago. About two days ago, the pain became a "hot stabbing" pain. Since then, it has gradually increased in severity and now radiates to her left jaw and through to her back at times. She has had associated nausea but no vomiting. She denies shortness of breath, dizziness, syncope, palpitations, ROSS, heartburn or indigestion. Pain is worse with exertion and with deep breathing but improves with lying flat. Pt is typically pretty active and does a two mile hike each morning. 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 She had similar pain in 2012 but not as severe - work-up at that time including stress test was negative. Her father and sister both had MIs in their 50s. Initial pain in the ED was a 7/10. After nitro given in ED, rates discomfort as 3/10 although starting to increase again slightly to 4-5/10. Admission Exam Per Admitting Provider Constitutional: WD/WN, vitals as above no acute distress Eyes: + anicteric sclerae; no conjunctival abnormality Neck: trachea midline Respiratory: no respiratory distress and no labored breathing Auscultation: lungs clear to auscultation bilaterally; no rales, no rhonchi and no wheezes Cardiovascular: Rate/Rhythm: + abnormal rate and + abnormal rhythm Heart Sounds: no gallop, no murmur and no cardiac rub Vessels: posterior tibial pulses present and radial pulses present; no carotid bruit Extremities: no calf tenderness and no pedal edema Gastrointestinal (Abdomen): Inspection/Auscultation: normal bowel sounds; abdomen not distended Percussion/Palpation: abdomen soft; abdomen nontender Musculoskeletal: Head/Neck/Chest: normocephalic, head atraumatic and neck supple; no chest tenderness Skin: no rashes, warm and dry no jaundice Neurologic: no focal motor deficits Psychiatric: A+Ox3, euthymic affect Principal Diagnosis Chest pain-no ACS:likely secondary to costochondritis, hypertension Discharge Exam Constitutional well developed, well nourished and + obese Eyes PERRL, conjunctivae normal, anicteric sclerae ENMT external ear and nose normal, oropharynx normal Neck trachea midline, no thyromegaly Respiratory no respiratory distress Auscultation: lungs clear to auscultation bilaterally Cardiovascular Rate/Rhythm: regular rate and regular rhythm Heart Sounds: no murmur Extremities: no edema Gastrointestinal (Abdomen) Inspection/Auscultation: normal bowel sounds; abdomen not distended Percussion/Palpation: abdomen soft; abdomen nontender Psychiatric A+Ox3, euthymic affect Lymphatic no cervical or axillary lymphadenopathy Discharge Data Allergies Allergy/AdvReac Type Severity Reaction Status Date / Time tetanus toxoid, adsorbed Allergy Intermediate ARMS FACE Verified 12/06/20 09:02 AND NECK SWELLS UP lisinopril Allergy Unknown cough Verified 12/06/20 09:02 Consultations 12/06/20 11:14 ED Decision to Admit Stat 12/06/20 15:39 Consult Cardiology Routine Ordered Studies 12/06/20 15:30 CT angio chest PE protocol Routine Hospital Course (1) Chest pain: Ongoing chest pain x 1 week but changed over past two days - worse with exertion. Pt with risk factors for cardiac disease including HTN, obesity, and family history so will admit for observation and further work-up As significant precordial tenderness and the pain could be secondary to costochondritis Serial troponins and EKG remain unremarkable for any ACS Continue nitro paste for CP/elevated BP Check ECHO: Left ventricle is normal in size, there is mild concentric LV hypertrophy, the basal septum is thickened and angulated consistent with sigmoid septum, LV systolic function is normal with EF 55 to 60%, no significant valvular disease, aortic root is normal in size, there is no pericardial effusion and there is grade 1 diastolic dysfunction Lipid profile noted Appreciate cardiology input and recommendation Awaiting stress test this morning (2) Hypertension: Continue outpatient lorsartan May need to add another antihypertensive to control the blood pressure Await cardiology evaluation for that Pt seen and reviewed with collaborating physician, Dr. Banegas. Plan of care discussed and as outlined above. Code status: Full code Total Time Total Time Spent Total Time Spent (In Minutes): 35 minutes Total Time Includes: Examination of the Patient, Discharge Planning, Medication Reconciliation and Communication With Other Providers Discharge Plan Discharge Items Patient Disposition: Home - Self-Care Reason For Visit: CHEST PAIN Discharge Diagnosis: Chest pain-no ACS:likely secondary to costochondritis, hypertension Condition on Discharge: Good Activity: Resume your previous activity Non-emergency contact: Primary Care Provider Call non-emergency contact if: you have any medication questions and your symptoms worsen Follow-up/Referrals: Rex Gilliam MD [Primary Care Provider] - (Date & Time 12/13/2020 11:00 AM Provider Edwin Zapata MD Department Family [facility] ) Diet: Heart Healthy Addtl Attending Provider Instructions: You can try [id number] NSAID use like ibuprofen or Advil with food for the precordial pain We have added amlodipine for better control of the blood pressure Pending Studies at Discharge: No Stand-Alone Forms: My [facility] [employer], Smoking Cessation Medications and DC Order Prescriptions: New amlodipine [Norvasc] 5 mg Tablet 5 mg PO QAM Qty: 30 RF: 0 Continued calcium carbonate [Calcium 500] 500 mg calcium (1,250 mg) Tablet 500 mg PO QAM RF: 0 losartan 100 mg tablet 100 mg PO QAM RF: 0 sodium chloride [Saline Nasal] 0.65 % Aerosol,[place] 1 spray INTRANASAL TID RF: 0 Discharge Orders: Discharge Order (Routine); Ordered 12/07/20 Ordered By: Thad Claire Admission Data Admit Date/Time: 12/06/20 12:56 Attending Provider: Thad Claire Admit Provider: Bibi Banegas Primary Care Provider: Rex Gilliam Other Providers: Bibi Banegas ; García Deleon Other Interventions: Discharge Summary Assessment (RN) Last Done: 12/07/20 15:10
== END 2020-12-07 16:06 | disposition home or self-care (01) ==
LOC: 2N 08:30 → ED 08:30 → SUATTDRO 12:56 → 2N 14:39

== ENCOUNTER 2023-12-16 15:02 | Inpatient (IN) ==
[2023-12-16] MEDS: OPTIRAY 350 500ml IV ONE (15:30)
--- NOTE | 2023-12-16 15:30 | Electrocardiogram Report ---
Test Reason : Blood Pressure : / mmHG Vent. Rate : 070 BPM Atrial Rate : 070 BPM P-R Int : 136 ms QRS Dur : 080 ms QT Int : 430 ms P-R-T Axes : 023 060 063 degrees QTc Int : 464 ms Poor data quality, interpretation may be adversely affected Normal sinus rhythm Normal ECG When compared with ECG of 06-DEC-2020 09:03, No significant change was found Confirmed by Shaheen Durham ([id number]) on 12/16/2023 3:29:55 PM Referred By: Confirmed By:Shaheen Durham
--- NOTE | 2023-12-16 15:31 | Emergency Department Note ---
Impression & Plan Stroke-like symptoms, Hypertension, Chest pain, Acute anterior epistaxis ED Provider Note NAME: TITUS ALMEIDA AGE: 68 SEX: F : 1955 ARRIVES VIA: Walk-In INFORMANT: Patient, ED PROVIDER(S): Shaheen Wiley DO CHIEF COMPLAINT: Strokelike symptoms HPI: The patient is a 68-year-old female who has a history of diabetes as well as breast cancer who presented to the emergency department for evaluation of weakness. The patient states that she has been having chest pain symptoms for the last few weeks. She notices some pain with exertion. She finally had an appointment with her family doctor today and was seen. Around 1 PM she started noticing weakness on the left side of her face as well as tingling in her left arm. The patient was sent to the emergency department by her primary care physician for further evaluation. The patient denies having any headache. She does state that she has some neck stiffness. She denies having any back pain. She denies having any abdominal pain or difficulty breathing. The patient has never had symptoms like this before. ROS: See above HPI for pertinent positives & negatives. A total of 10 systems reviewed and were otherwise negative. PAST MEDICAL HISTORY: See Below PAST SURGICAL HISTORY: See Below FAMILY HISTORY: See Below SOCIAL HISTORY: See Below HOME MEDICATIONS: See Below ALLERGIES: See Below VITALS: See Below PHYSICAL EXAMINATION: GENERAL: Patient is awake alert in no acute distress patient is resting comfortably and showing no signs of anxiety EYES: The conjunctivae are clear. The pupils are round and reactive. EARS, NOSE, MOUTH AND THROAT: The nose is without any evidence of any deformity. NECK: The neck is nontender and supple. RESPIRATORY: Normal respiratory effort is noted there is no evidence of wheezing rhonchi or rales CARDIOVASCULAR: Regular rate and rhythm noted there no murmurs rubs or gallops normal S1 normal S2. GASTROINTESTINAL: The abdomen is soft. Abdomen is nontender. MUSCULOSKELETAL/EXTREMITIES: There is no evidence of gross deformity full range of motion is noted in the hips and shoulders. SKIN: There is no obvious evidence of any rash. There are no petechiae, pallor or cyanosis noted. NEUROLOGIC: Patient is awake alert and oriented x3. Strength was symmetric in both upper extremities. The patient is able to hold each leg off the bed for greater than 5 seconds. There was a left-sided facial droop with forehead sparing. There was no drift in the upper extremities. MEDICAL DECISION MAKING: The patient is a 68-year-old female who presented to the emergency department for an evaluation of strokelike symptoms. The patient started having strokelike symptoms at approximately 1 to 1:30 PM. The last known well time was somewhat difficult to ascertain by the patient's recollection. She was awake alert and oriented x 3 but had left-sided facial droop and left arm tingling. The patient also described chest pain that she been having intermittently over the course the last few weeks. For this reason she was made a stroke alert. The patient was treated during a very busy time in the emergency department with multiple stroke alerts. I discussed the patient's condition with the [facility] telestroke neurologist. They were unable to help initially and we had to wait for the stroke neurologist to sign in to the cart. After evaluation they felt the patient may be a good candidate for TNK. The patient had the risks and benefits explained to her by the neurologist as well as by myself. Ultimately she was agreeable to TNK. She had to have her blood pressure managed with multiple IV medications. I discussed the patient's laboratory and radiographic studies with her. I discussed her condition with the on-call [facility] hospitalist. They have agreed to evaluate the patient in the emergency department for further management and disposition. An anterior packing given the amount of bleeding. This did seem to help the epistaxis. She was also given a TXA nebulizer. Triage Nursing notes reviewed. Prior medical records reviewed Vital Signs: reviewed and remarkable for initial hypertension. Differential diagnosis: Infection, dehydration, metabolic abnormality, hypo/hyperglycemia, electrolyte disturbance, anemia, hypoxia, cardiac sources, intracerebral event, toxicologic, neurologic, as well as other pathologies. ER treatment provided: See below Diagnostics interpreted by me: ECG: EKG was obtained in the emergency department. My interpretation is normal sinus rhythm at 70 bpm. There was a PVC noted. Nonspecific ST segment abnormalities noted. This was compared with tracing from December 06, 2020. No changes were noted. EKG from the patient's primary care physician's office was reviewed. My interpretation is normal sinus rhythm at 67 bpm. There was no ectopy. Nonspecific ST segment abnormalities were noted. This compares similar to the tracing obtained in the emergency department. Cardiac Monitoring: An order was placed for continuous cardiac monitoring. The monitor shows a rate of 79 bpm with sinus rhythm. Laboratory studies: As stated above and show below. Imaging studies: See below. Radiographic imaging was reviewed by myself Consultation(s): I discussed this case with Dr. Vaughn who is on-call for the [facility]. The patient did develop epistaxis. This was treated with I discussed this case with Dr. Amin who is on-call for the [facility] telestroke neurology group. The patient was ultimately evaluated by Dr. Del Toro. ED COURSE: Procedures: Anterior Nasal Packing Indication: Verbal consent obtained. Risks and benefits were explained with the usual customary discussion. A time out was taken. Clots were removed with suction. The naris was prepped with Afrin and lidocaine. A 5.5-cm nasal balloon was placed in a standard fashion. The patient tolerated this well. Hemostasis was achieved. No complications. Critical Care: I have personally spent greater than 55 minutes of critical care time in the direct management of this patient. This includes bedside care, interpretation of diagnostic studies, and testing, discussion with consultants, patient, and family members, and other required patient management activities. This 55 minutes is in excess of all separately billable procedures. Past Med/Surg History Medical History Controlled type 2 diabetes mellitus Breast cancer (11/25/14) "Status post abnormal right breast mammogram Status post ultrasound-guided biopsy 11/25/2014 revealing infiltrating ductal carcinoma Estrogen receptor, progesterone receptor positive, and HER-2/claritza negative Status post lumpectomy and sentinel lymph node biopsy 12/29/2014 Stage [id number] Status post completion of radiation therapy to the right breast excisional cavity utilizing accelerated partial breast treatment completed 03/11/2015 received 3850 cGy" Hypertension Surgical History H/O colonoscopy H/O tubal ligation H/O: History of parotid gland removal History of appendectomy History of partial hysterectomy History of carpal tunnel surgery Family History Father Heart disease NM in his late 50s, CABG x 3 Diabetes Sister Heart disease [place] at age 50 Social History Smoking Status: Never smoker Hx Alcohol Use: No Hx Substance Use: No Preferred Language: Setswana Communication Ability: Effective Md Psychiatry Required: No Beliefs That Will Affect Care: None Current Living Situation: Spouse current occupational status: retired Feels Safe at Home: Yes caffeine: Yes Physical Activity Frequency: Daily Assistive Devices: None Allergies Allergies Allergy/AdvReac Type Severity Reaction Status Date / Time tetanus toxoid, adsorbed Allergy Intermediate ARMS FACE Verified 12/16/23 15:56 AND NECK SWELLS UP lisinopril Allergy Unknown cough Verified 12/16/23 15:56 metformin AdvReac severe Verified 12/16/23 15:56 diarrhea Home Meds Home Medications Medication Instructions Recorded Confirmed sodium chloride 0.65 % nasal spray 1 spray intranasal TID 12/06/20 12/16/23 aerosol (Saline Nasal) losartan 100 mg tablet 100 mg PO DAILY 08/28/23 12/16/23 Previous Rx's Medication Instructions Recorded pen needle, diabetic 32 gauge x #100 ea 10/04/2132" (BD Ultra-Fine Hellen Pen Needle) insulin aspart U-100 100 unit/mL 70 unit (0.7 mL) subcut DAILY 90 08/29/23 subcutaneous solution (Novolog days #70 mL U-100 Insulin aspart) insulin glargine 100 unit/mL (3 25 unit (0.25 mL) subcut DAILY #15 08/29/23 mL) subcutaneous pen (Lantus mL Solostar U-100 Insulin) atorvastatin 10 mg tablet 10 mg PO DAILY #30 tabs 09/12/23 insulin pump cartridge,automated #1 ea 12/09/23 dose,BT with controller subcutaneous (Omnipod 5 G6 Intro Kit (Gen 5) subcutaneous cartridge with controller) insulin pump cart,automated,BT #45 ea 12/10/23 (Omnipod 5 G6 Pods (Gen 5) subcutaneous cartridge) Results & Data (ED) Vital Signs Vital Signs - 24 hr 12/16/23 15:11 12/16/23 15:25 12/16/23 15:44 Temperature 36.6 C Temperature Source Temporal Artery Scan Pulse Rate 69 90 Pulse Rate [Apical] Pulse Rate from SpO2 Sensor 88 Pulse Rhythm [Apical] Respiratory Rate 20 16 Respiratory Effort / Characteristics Respiratory Depth Respiratory Pattern Blood Pressure 195/109 H Blood Pressure [Right Arm] Blood Pressure Mean 137 Blood Pressure Mean [Right Arm] Blood Pressure Position Sitting Blood Pressure Position [Right Arm] Pulse Oximetry 100 100 Oxygen Delivery Method Room Air Sepsis Recent Fever Within 48 Hours No Sepsis New/Unexplained Change in Mental Status No Sepsis Action Taken by Nursing No Action Required 12/16/23 15:45 12/16/23 15:45 12/16/23 15:49 Temperature Temperature Source Pulse Rate 74 Pulse Rate [Apical] Pulse Rate from SpO2 Sensor 75 Pulse Rhythm [Apical] Respiratory Rate 14 Respiratory Effort / Characteristics Respiratory Depth Respiratory Pattern Blood Pressure 206/103 H 194/101 H Blood Pressure [Right Arm] Blood Pressure Mean 110 146 Blood Pressure Mean [Right Arm] Blood Pressure Position Blood Pressure Position [Right Arm] Pulse Oximetry 100 Oxygen Delivery Method Sepsis Recent Fever Within 48 Hours Sepsis New/Unexplained Change in Mental Status Sepsis Action Taken by Nursing 12/16/23 15:49 12/16/23 15:50 12/16/23 15:51 Temperature Temperature Source Pulse Rate 77 70 72 Pulse Rate [Apical] Pulse Rate from SpO2 Sensor 74 69 Pulse Rhythm [Apical] Respiratory Rate 14 18 Respiratory Effort / Characteristics Respiratory Depth Respiratory Pattern Blood Pressure 191/101 H Blood Pressure [Right Arm] Blood Pressure Mean Blood Pressure Mean [Right Arm] Blood Pressure Position Blood Pressure Position [Right Arm] Pulse Oximetry 95 100 Oxygen Delivery Method Sepsis Recent Fever Within 48 Hours Sepsis New/Unexplained Change in Mental Status Sepsis Action Taken by Nursing 12/16/23 15:53 12/16/23 15:53 12/16/23 16:10 Temperature Temperature Source Pulse Rate 65 Pulse Rate [Apical] 58 L Pulse Rate from SpO2 Sensor 67 Pulse Rhythm [Apical] Respiratory Rate 17 16 Respiratory Effort / Characteristics Non-Labored Respiratory Depth Normal Respiratory Pattern Blood Pressure 149/102 H Blood Pressure [Right Arm] 175/93 H Blood Pressure Mean 114 Blood Pressure Mean [Right Arm] 120 Blood Pressure Position Blood Pressure Position [Right Arm] Pulse Oximetry 98 100 Oxygen Delivery Method Room Air Sepsis Recent Fever Within 48 Hours Sepsis New/Unexplained Change in Mental Status Sepsis Action Taken by Nursing 12/16/23 16:15 12/16/23 16:22 12/16/23 16:40 Temperature Temperature Source Pulse Rate 58 L 60 Pulse Rate [Apical] 64 Pulse Rate from SpO2 Sensor Pulse Rhythm [Apical] Regular Respiratory Rate 17 Respiratory Effort / Characteristics Non-Labored Respiratory Depth Normal Respiratory Pattern Blood Pressure 175/93 H 200/86 H Blood Pressure [Right Arm] 197/106 H Blood Pressure Mean Blood Pressure Mean [Right Arm] 136 Blood Pressure Position Blood Pressure Position [Right Arm] Pulse Oximetry 100 Oxygen Delivery Method Room Air Sepsis Recent Fever Within 48 Hours Sepsis New/Unexplained Change in Mental Status Sepsis Action Taken by Nursing 12/16/23 16:44 12/16/23 17:07 12/16/23 17:07 Temperature Temperature Source Pulse Rate 55 L Pulse Rate [Apical] 58 L 55 L Pulse Rate from SpO2 Sensor Pulse Rhythm [Apical] Regular Respiratory Rate 20 13 Respiratory Effort / Characteristics Non-Labored Non-Labored Respiratory Depth Normal Normal Respiratory Pattern Regular Blood Pressure 168/86 H Blood Pressure [Right Arm] 223/88 H 168/86 H Blood Pressure Mean Blood Pressure Mean [Right Arm] 133 113 Blood Pressure Position Blood Pressure Position [Right Arm] Sitting Pulse Oximetry 98 99 Oxygen Delivery Method Room Air Room Air Sepsis Recent Fever Within 48 Hours Sepsis New/Unexplained Change in Mental Status Sepsis Action Taken by [facility] Medications Current Medication List: was personally reviewed by me Laboratory Data Attestation: I reviewed the patient's lab results. 12/16/23 15:25 12/16/23 15:25 Lab Results 12/16/23 12/16/23 Range/Units 15:25 15:41 WBC 7.63 (4.8-10.8) K/ul RBC 4.35 (4.20-5.40) M/uL Hgb 13.2 (12.0-16.0) g/dl Hct 38.3 (37.0-47.0) % MCV 88.0 (80.0-100.0) fL MCH 30.3 (25.0-34.0) pg MCHC 34.5 (32.0-36.0) g/dL RDW Std Deviation 41.0 (36.4-46.3) fL RDW Coeff of Nory 12.8 (11.5-14.5) % Plt Count 290 (130-400) K/uL MPV 9.0 L (9.4-12.4) fL Immature Gran % (Auto) 0.3 % Neut % (Auto) 51.9 % Lymph % (Auto) 38.0 % Culberson % (Auto) 7.2 % Eos % (Auto) 2.1 % Baso % (Auto) 0.5 % Neut # (Auto) 3.96 (1.40-6.50) K/uL Lymph # (Auto) 2.90 (1.20-3.40) K/uL [place] # (Auto) 0.55 (0.11-0.59) K/uL Eos # (Auto) 0.16 (0.00-0.50) K/uL Baso # (Auto) 0.04 (0.00-0.20) K/uL Immature Gran # (Auto) 0.02 (0.01-0.20) K/uL PT 10.3 (9.0-12.0) Seconds INR 0.9 (0.9-1.1) APTT 26 (21-31) Seconds PTT Ratio 0.9 Sodium 140 (136-145) mmol/L Potassium 3.9 (3.5-5.1) mmol/L Chloride 106 (98-107) mmol/L Carbon Dioxide 27 (21-32) mmol/L Anion Gap 7 (3-11) BUN 20 (6-23) mg/dl Creatinine 1.08 (0.6-1.2) mg/dl Est Cr Clr Drug Dosing 55.8 ml/min Est GFR ( Amer) 61.5 ml/min Est GFR (Non-Af Amer) 53.1 ml/min BUN/Creatinine Ratio 18.5 (10-20) Glucose 80 (70-99(Fasting)) mg/dl POC Glucose 71 (70-99) mg/dl Calcium 9.6 (8.6-10.3) mg/dl Magnesium 2.1 (1.7-2.4) mg/dl Total Bilirubin 0.8 (0.2-1.0) mg/dl AST 21 (13-39) U/L ALT 17 (7-52) U/L Alkaline Phosphatase 81 (34-104) U/L Troponin I High Sens 6.6 (0-14) pg/ml Total Protein 7.4 (6.0-8.3) gm/dl Albumin 4.5 (3.4-5.0) gm/dl Globulin 2.9 (2.5-4.0) gm/dl Albumin/Globulin Ratio 1.6 (0.9-2) Administered Medications Nicardipine HCl 25 mg/ Sodium (Chloride) 250 mls @ 50 mls/hr IV .Q5H TIEN; Protocol Stop: 01/15/24 18:14 Last Titration: 12/16/23 19:15 Dose: 2.5 mg/hr, 25 mls/hr Documented By: Admin: 12/16/23 18:50 Dose: 5 mg/hr, 50 mls/hr Documented By: LISA Co-signed By: ELOISA Discontinued Medications Fentanyl Citrate (Fentanyl Citrate Pf 100 Mcg/2 Ml Vial) Confirm Administered Dose 100 mcg .ROUTE .STK-MED ONE Stop: 12/16/23 18:56 Last Increment: 12/16/23 18:55 Dose: 50 mcg Documented By: LISA Hydralazine HCl (Hydralazine Hcl 20 Mg/Ml Vial) Confirm Administered Dose 20 mg .ROUTE .STK-MED ONE Stop: 12/16/23 17:51 Last Increment: 12/16/23 17:52 Dose: 10 mg Documented By: AYALA Sodium Chloride (Nss) 250 mls @ 999 mls/hr IV .Q16M ONE Stop: 12/16/23 16:48 Last Infusion: 12/16/23 16:57 Dose: Infused Documented By: Admin: 12/16/23 16:41 Dose: 999 mls/hr Documented By: AYALA Magnesium Sulfate/Dextrose (Magnesium Sulfate / D5w) 1 gm in 100 mls @ 100 mls/hr IV Q1H TIEN Stop: 12/16/23 18:32 Last Infusion: 12/16/23 18:26 Dose: Infused Documented By: LISA(2) Admin: 12/16/23 17:38 Dose: 100 mls/hr Documented By: LISA(2) Infusion: 12/16/23 17:38 Dose: Infused Documented By: LISA(2) Admin: 12/16/23 16:41 Dose: 100 mls/hr Documented By: AYALA Tenecteplase 23 mg/ Syringe 4.6 mls @ 55.2 mls/min IV NOW ONE; Protocol Stop: 12/16/23 16:51 Last Admin: 12/16/23 16:47 Dose: 55.2 mls/min Documented By: AYALA Co-signed By: LISA(2) Ioversol (Optiray 350 500ml) 116 ml IV ONCE ONE Stop: 12/16/23 15:31 Last Admin: 12/16/23 15:30 Dose: 116 ml Documented By: LEORA Labetalol HCl (Labetalol Hcl Iv 5 Mg/Ml 20ml) Confirm Administered Dose 10 mg IV .STK-MED ONE Stop: 12/16/23 15:51 Last Admin: 12/16/23 15:52 Dose: Not Given Documented By: EMILEE Labetalol HCl (Labetalol Hcl Iv 5 Mg/Ml 20ml) 10 mg IV NOW STA Stop: 12/16/23 15:51 Last Admin: 12/16/23 15:51 Dose: 10 mg Documented By: EMILEE Co-signed By: WAGNER Labetalol HCl (Labetalol Hcl Iv 5 Mg/Ml 20ml) 10 mg IV NOW STA Stop: 12/16/23 16:25 Last Admin: 12/16/23 16:33 Dose: 10 mg Documented By: AYALA Co-signed By: LISA(2) Labetalol HCl (Labetalol Hcl Iv 5 Mg/Ml 20ml) 10 mg IV NOW STA Stop: 12/16/23 16:55 Last Admin: 12/16/23 16:55 Dose: 10 mg Documented By: AYALA Co-signed By: LISA(2) Labetalol HCl (Labetalol Hcl Iv 5 Mg/Ml 20ml) 10 mg IV NOW STA Stop: 12/16/23 17:44 Last Admin: 12/16/23 17:44 Dose: 10 mg Documented By: LISA(2) Co-signed By: AYALA Magnesium Sulfate/Dextrose (Magnesium Sulfate 1gm / D5w Bag) Confirm Administered Dose 2 gm IV .STK-MED ONE Stop: 12/16/23 16:31 Last Admin: 12/16/23 16:33 Dose: 2 gm Documented By: AYALA Miscellaneous (Stat Iv/Im) 1 each N/A NOW STA Stop: 12/16/23 16:41 Last Admin: 12/16/23 16:48 Dose: 1 each Documented By: AYALA Oxymetazoline HCl (Oxymetazoline 0.05% 30 Ml Btl) 1 sprays NA NOW ONE Stop: 12/16/23 17:55 Last Admin: 12/16/23 18:01 Dose: 1 sprays Documented By: LISA(2) Sodium Chloride (Sodium Chloride 0.9% 10ml Flush) 20 ml IV NOW STA Stop: 12/16/23 16:41 Last Admin: 12/16/23 16:48 Dose: 20 ml Documented By: AYALA Tranexamic Acid (Txa 10% Non-Iv Routes 100 Mg/Ml Vial) Confirm Administered Dose 1,000 mg .ROUTE .STK-MED ONE Stop: 12/16/23 17:55 Last Admin: 12/16/23 18:02 Dose: Not Given Documented By: LISA(2) Tranexamic Acid (Txa 10% Non-Iv Routes 100 Mg/Ml Vial) 250 mg NEB ONE ONE Stop: 12/16/23 17:55 Last Admin: 12/16/23 18:02 Dose: 250 mg Documented By: LISA(2) Imaging Data Attestation: I personally reviewed and interpreted this imaging study as follows: My Impression: CT of the brain was obtained in the emergency department. My interpretation is no free air or definite infiltrate, final report below. CT of the chest was obtained in the emergency department. My interpretation is no free air or definite filtrate, final report below. Radiologist's Impression: Chest CTA 12/16/23 15:19 CT angio chest PE protocol CLINICAL HISTORY: PE TECHNIQUE: Multidetector row helical CT of the chest was performed with angiographic protocol. Coronal and sagittal reformations were obtained. Coronal and sagittal MIPS were obtained from the axial data set and were submitted for review. Automated dose lowering techniques and/or adjustment according to patient size were utilized for this exam. Comparison: Comparison is made to CTA chest 12/06/2020 FINDINGS: Lungs and pleura: Normal. Heart and pericardium: Heart size is normal. No pericardial effusion. Vessels: No evidence of pulmonary embolism. Mediastinum and vega: Unremarkable. Chest wall and lower neck: Unremarkable. Abdomen: Unremarkable. Bones: Degenerative changes in the thoracic spine. ACDF is seen. IMPRESSION: No acute abnormality and in particular no evidence of pulmonary embolus. ACT 112: Negative or not required by law. Electronically signed by: Ronaldo Mattson M.D. 12/16/2023 4:[address] 12/16/23 15:20 CT SCAN OF THE BRAIN WITHOUT IV CONTRAST CLINICAL HISTORY: Neurological deficit. Stroke like symptoms. COMPARISON STUDY: CT of the brain dated 06/07/2016. TECHNIQUE: Unenhanced axial CT scan of the brain is performed from the vertex to the skull base. A dose lowering technique was utilized adhering to the principles of ALARA. CT DOSE: 1967.06 mGy.cm FINDINGS: Brain parenchyma: There is age-related involutional change noting mild subcortical and periventricular microangiopathic disease. There is no hemorrhage, mass effect, or evidence of acute territorial ischemia by CT criteria. Mineralization is noted in the basal ganglia. Jo-white matter differentiation is preserved. No extra-axial fluid collection is seen. Ventricles, sulci, cisterns: Prominent secondary to involutional change. Intracranial vasculature: There is atherosclerotic calcification of the cavernous carotid and vertebral arteries. Calvarium: Unremarkable. Sinuses and mastoids: Postoperative changes partially visualized in the maxillary antra. The visualized paranasal sinuses are clear. The mastoid air cells are well pneumatized. Orbits: The bony orbits are grossly intact. IMPRESSION: There is no hemorrhage, mass effect, or evidence of acute territorial ischemia by CT criteria. ACT 112: Negative or not required by law. Electronically signed by: Félix Ward M.D. 12/16/2023 3:55 PM Head CTA 12/16/23 15:20 CTA ANGIOGRAPHY OF THE HEAD CLINICAL HISTORY: neuro deficit, acute stroke suspected COMPARISON STUDY: MRA of the head June 07, 2016. TECHNIQUE: Helical axial images of the head were obtained following uneventful intravenous administration of 116 cc of Optiray. Sagittal and coronal reconstructions were viewed as well as maximal intensity projections on an independent 3-D workstation. Automated exposure control was utilized for the study. A dose lowering technique was utilized adhering to the principles of ALARA. FINDINGS: No acute intracranial hemorrhage is identified on the head CT which will be reported separately. The bilateral M1, M2, A1 and A2 segments are patent. There is no central vessel occlusion. There is no intracranial aneurysm. Posterior circulation is intact. There are bilateral posterior communicating arteries. There are postoperative findings within the maxilla and nasal bones. IMPRESSION: No central vessel occlusion. No intracranial aneurysm. ACT 112: Negative or not required by law. Electronically signed by: Rodrick Gonzalez M.D. 12/16/2023 4:10 PM Neck CTA 12/16/23 15:20 CT ANGIOGRAM OF THE NECK CLINICAL HISTORY: Neurological deficit. Stroke like symptoms. COMPARISON STUDY: No priors. TECHNIQUE: Following the IV administration of 116 of Optiray 350, CT angiogram of the neck was performed from the aortic arch to the skull base. Images are reviewed in the axial, sagittal, and coronal planes. 3-D MIPS images are created and assessed. IV contrast was administered without complication. All measurements were calculated based on NASCET criteria. A dose lowering technique was utilized adhering to the principles of ALARA. FINDINGS: Thoracic aorta: Visualized portions of the thoracic aorta are normal in caliber. The aortic arch demonstrates standard 3-vessel anatomy. Right carotid arterial system: The right common carotid artery is widely patent, as are the right internal and external carotid arteries. Left carotid arterial system: The left common carotid artery is widely patent, as are the left internal and external carotid arteries. Mild calcified plaque is seen in the carotid bulb. Vertebral arteries: The vertebral arteries are widely patent bilaterally and codominant. Subclavian arteries: Widely patent bilaterally. Intracranial vasculature: The visualized intracranial vessels at the skull base are patent. Jugular veins: Widely patent bilaterally. Brain parenchyma: The visualized brain parenchyma the skull base is within normal limits. Lung apices: Partially visualized upper lobe lung parenchyma appears clear. Soft tissues: The visualized pharyngeal soft tissues are normal in appearance noting angiographic phase technique. The oropharyngeal airway appears widely patent. There is asymmetric atrophy of the left parotid gland as compared to the right. The thyroid gland is normal in appearance. No cervical lymphadenopathy is seen. Skeletal structures: The visualized calvarium at the skull base appears intact. Postsurgical and degenerative change is noted in the cervical spine. Sinuses and mastoids: Postsurgical changes noted in the maxillary antra. The visualized nasal sinuses are clear. The mastoid air cells are well pneumatized. IMPRESSION: Unremarkable CT angiogram of the neck. ACT 112: Negative or not required by law. Electronically signed by: Félix Ward M.D. 12/16/2023 3:59 PM Discharge Plan Visit Data Chief Complaint: Chest Pain Stated Complaint: CHEST PAINS, ABNORMAL EKG ED Provider: Shaheen Wiley Discharge Problem: Stroke-like symptoms, Hypertension, Chest pain, Acute anterior epistaxis Patient Disposition: Admitted As Inpatient Discharge Instructions Interventions: ED Discharge Assessment Last Done: 12/16/23 18:41 Discharge Problem: Hypertension Qualifiers: Hypertension type: unspecified Qualified Code(s): I10 - Essential (primary) hypertension Chest pain Qualifiers: Chest pain type: unspecified Qualified Code(s): R07.9 - Chest pain, unspecified
[2023-12-16 15:47] LABS: Basophils # (auto) 0.04 K/uL (0.00-0.20); Basophils % (auto) 0.5 %; Eosinophils # (auto) 0.16 K/uL (0.00-0.50); Eosinophils % (auto) 2.1 %; Hematocrit (blood only) 38.3 % (37.0-47.0); Hemoglobin 13.2 g/dl (12.0-16.0); Immature Granulocytes # (auto) 0.02 K/uL (0.01-0.20); Immature Granulocytes % (auto) 0.3 %; Mean Corpuscular Hemoglobin 30.3 pg (25.0-34.0); Mean Corpuscular Hgb Conc 34.5 g/dL (32.0-36.0); Monocytes # (auto) 0.55 K/uL (0.11-0.59); Monocytes % (auto) 7.2 %; Neutrophils # (auto) 3.96 K/uL (1.40-6.50); Neutrophils % (auto) 51.9 %; Platelet Count 290 K/uL (130-400); RDW Coefficient of Variation 12.8 % (11.5-14.5); Red Blood Count 4.35 M/uL (4.20-5.40); White Blood Count 7.63 K/ul (4.8-10.8)
[2023-12-16] MEDS: LABETALOL HCL IV 5 MG/ML 20ML IV STA ×4 (15:51→17:44)
[2023-12-16] MEDS: LABETALOL HCL IV 5 MG/ML 20ML IV ONE (15:52)
--- NOTE | 2023-12-16 15:56 | CT Scan Report ---
CT SCAN OF THE BRAIN WITHOUT IV CONTRAST CLINICAL HISTORY: Neurological deficit. Stroke like symptoms. COMPARISON STUDY: CT of the brain dated 06/07/2016. TECHNIQUE: Unenhanced axial CT scan of the brain is performed from the vertex to the skull base. A do se lowering technique was utilized adhering to the principles of ALARA. CT DOSE: 1967.06 mGy.cm FINDINGS: Brain parenchyma: There is age-related involutional change noting mild subcortical and periventricula r microangiopathic disease. There is no hemorrhage, mass effect, or evidence of acute territorial isc hemia by CT criteria. Mineralization is noted in the basal ganglia. Jo-white matter differentiation is preserved. No extra-axial fluid collection is seen. Ventricles, sulci, cisterns: Prominent secondary to involutional change. Intracranial vasculature: There is atherosclerotic calcification of the cavernous carotid and vertebr al arteries. Calvarium: Unremarkable. Sinuses and mastoids: Postoperative changes partially visualized in the maxillary antra. The visualiz ed paranasal sinuses are clear. The mastoid air cells are well pneumatized. Orbits: The bony orbits are grossly intact. IMPRESSION: There is no hemorrhage, mass effect, or evidence of acute territorial ischemia by CT nayan esqueda. ACT 112: Negative or not required by law. Electronically signed by: Félix Ward M.D. 12/16/2023 3:55 PM
--- NOTE | 2023-12-16 16:00 | CT Scan Report ---
CT ANGIOGRAM OF THE NECK CLINICAL HISTORY: Neurological deficit. Stroke like symptoms. COMPARISON STUDY: No priors. TECHNIQUE: Following the IV administration of 116 of Optiray 350, CT angiogram of the neck was perfor med from the aortic arch to the skull base. Images are reviewed in the axial, sagittal, and coronal p lanes. 3-D MIPS images are created and assessed. IV contrast was administered without complication. A ll measurements were calculated based on NASCET criteria. A dose lowering technique was utilized adh ering to the principles of ALARA. FINDINGS: Thoracic aorta: Visualized portions of the thoracic aorta are normal in caliber. The aortic arch demo nstrates standard 3-vessel anatomy. Right carotid arterial system: The right common carotid artery is widely patent, as are the right int ernal and external carotid arteries. Left carotid arterial system: The left common carotid artery is widely patent, as are the left manager of internal audit al and external carotid arteries. Mild calcified plaque is seen in the carotid bulb. Vertebral arteries: The vertebral arteries are widely patent bilaterally and codominant. Subclavian arteries: Widely patent bilaterally. Intracranial vasculature: The visualized intracranial vessels at the skull base are patent. Jugular veins: Widely patent bilaterally. Brain parenchyma: The visualized brain parenchyma the skull base is within normal limits. Lung apices: Partially visualized upper lobe lung parenchyma appears clear. Soft tissues: The visualized pharyngeal soft tissues are normal in appearance noting angiographic pha se technique. The oropharyngeal airway appears widely patent. There is asymmetric atrophy of the left parotid gland as compared to the right. The thyroid gland is normal in appearance. No cervical lymph adenopathy is seen. Skeletal structures: The visualized calvarium at the skull base appears intact. Postsurgical and dege nerative change is noted in the cervical spine. Sinuses and mastoids: Postsurgical changes noted in the maxillary antra. The visualized nasal sinuses are clear. The mastoid air cells are well pneumatized. IMPRESSION: Unremarkable CT angiogram of the neck. ACT 112: Negative or not required by law. Electronically signed by: Félix Ward M.D. 12/16/2023 3:59 PM
--- NOTE | 2023-12-16 16:05 | CT Scan Report ---
CT angio chest PE protocol CLINICAL HISTORY: PE TECHNIQUE: Multidetector row helical CT of the chest was performed with angiographic protocol. Thornton l and sagittal reformations were obtained. Coronal and sagittal MIPS were obtained from the axial tammi a set and were submitted for review. Automated dose lowering techniques and/or adjustment according to patient size were utilized for this exam. Comparison: Comparison is made to CTA chest 12/06/2020 FINDINGS: Lungs and pleura: Normal. Heart and pericardium: Heart size is normal. No pericardial effusion. Vessels: No evidence of pulmonary embolism. Mediastinum and vega: Unremarkable. Chest wall and lower neck: Unremarkable. Abdomen: Unremarkable. Bones: Degenerative changes in the thoracic spine. ACDF is seen. IMPRESSION: No acute abnormality and in particular no evidence of pulmonary embolus. ACT 112: Negative or not required by law. Electronically signed by: Ronaldo Mattson M.D. 12/16/2023 4:04 PM
[2023-12-16 16:09] LABS: Albumin Globulin Ratio 1.6 (0.9-2); Albumin Level 4.5 gm/dl (3.4-5.0); BUN Creatinine Ratio 18.5 (10-20); Bilirubin,Total 0.8 mg/dl (0.2-1.0); Calcium 9.6 mg/dl (8.6-10.3); Creatinine Clr Calc Pharmacy 55.8 ml/min; Est GFR (African American) 61.5 ml/min; Est GFR (Non-African American) 53.1 ml/min; Globulin 2.9 gm/dl (2.5-4.0); Magnesium 2.1 mg/dl (1.7-2.4); Potassium 3.9 mmol/L (3.5-5.1); Total Protein 7.4 gm/dl (6.0-8.3)
--- NOTE | 2023-12-16 16:11 | CT Scan Report ---
CTA ANGIOGRAPHY OF THE HEAD CLINICAL HISTORY: neuro deficit, acute stroke suspected COMPARISON STUDY: MRA of the head June 07, 2016. TECHNIQUE: Helical axial images of the head were obtained following uneventful intravenous administr ation of 116 cc of Optiray. Sagittal and coronal reconstructions were viewed as well as maximal inten sity projections on an independent 3-D workstation. Automated exposure control was utilized for the study. A dose lowering technique was utilized adhering to the principles of ALARA. FINDINGS: No acute intracranial hemorrhage is identified on the head CT which will be reported separa tely. The bilateral M1, M2, A1 and A2 segments are patent. There is no central vessel occlusion. Ther e is no intracranial aneurysm. Posterior circulation is intact. There are bilateral posterior communi cating arteries. There are postoperative findings within the maxilla and nasal bones. IMPRESSION: No central vessel occlusion. No intracranial aneurysm. ACT 112: Negative or not required by law. Electronically signed by: Rodrick Gonzalez M.D. 12/16/2023 4:10 PM
[2023-12-16 16:15] LABS: Troponin I High Sensitivity 6.6 pg/ml (0-14)
[2023-12-16 16:18] LABS: INR 0.9 (0.9-1.1); Partial Thromboplastin Ratio 0.9; Partial Thromboplastin Time 26 Seconds (21-31); Prothrombin Time 10.3 Seconds (9.0-12.0)
[2023-12-16] MEDS: MAGNESIUM SULFATE 1GM / D5W BAG IV ONE (16:33)
[2023-12-16] MEDS: MAGNESIUM SULFATE / D5W 1 GM/100 ML BAG IV SCH (16:41)
[2023-12-16] MEDS: SODIUM CHLORIDE 0.9% 250 ML IV ONE (16:41)
[2023-12-16] MEDS ORDERED: No Aspirin within 24hrs of THROMBOLYTIC-Stroke PO SCH (16:45)
[2023-12-16] MEDS: TENECTEPLASE 23 MG in SYRINGE 0 ML IV ONE (16:47)
[2023-12-16] MEDS: STAT IV/IM STA (16:48)
[2023-12-16] MEDS: SODIUM CHLORIDE 0.9% 10ML FLUSH IV STA (16:48)
--- NOTE | 2023-12-16 17:23 | History & Physical Report ---
Date of Service December 16, 2023 Assessment & Plan (1) Stroke-like symptoms: (2) Left sided numbness: (3) Acute anterior epistaxis: (4) Uncontrolled hypertension: (5) Chest pain: (6) Controlled type 2 diabetes mellitus: (7) Dyslipidemia: Plan 68-year-old female with history of hypertension, diabetes mellitus presents from PCP office for chest tightness and complaint of of left-sided numbness for which stroke alert was called and is status post TNK, which is complicated by epistaxis and uncontrolled hypertension Strokelike symptoms s/p TNK- seen by tele neuro. CT head, CTA head and neck unremarkable. MRI brain pending. Monitor in ICU post TNK. Repeat CT head in 24 hours. Consult neurology and press setup operator. Further management per press setup operator and neuro. Hold ASA post TNK. Continue lipitor. Epistaxis- post TNK- s/p anterior nasal packing by ED physician with control of epistaxis. Further management per press setup operator Uncontrolled HTN post TNK- didn't respond to iv labetalol and HLZ. Started on nicardipine drip with improvement. She did take her losartan this morning and resumed for tomorrow. Further management per press setup operator. Chest tightness- Trend trop. Monitor on tele. Get echo. DM-2 on insulin pump- Accucheck. Glycemic pharmacist consulted. DVT ppx- SCDs. S/p TNK today Dispo- ICU Full code Updated daughter at bedside Time spent-approximately 87 minutes History of Present Illness Chief Complaint: Left-sided numbness, chest tightness Primary Care Provider: Edwin Zapata MD 68-year-old male with history of diabetes, hypertension, who presented to ED from PCP office for chest tightness. She had ongoing chest tightness for 2 weeks, more with exertion. She went to see her PCP today for the same. Per patient, she was found to have abnormal EKG and sent to the emergency. On presentation, she complained of left-sided numbness for which stroke alert was called. She was seen by teleneurology and was given TNK. CT head, CT head and neck was unremarkable. Post TNK, patient started to have left-sided epistaxis which was difficult to control with pressure application and left nasal packing was sent by ED physician. She was also found to have uncontrolled hypertension post TNK which was responsive to IV labetalol and hydralazine, for which Cardene drip was started. States her new numbness did not improve after tPA and chest tightness is about the same. Denies any oral neurological symptoms. Other review of system is unremarkable. Patient was transferred to ICU. I spoke to the ED physician and press setup operator regarding the case. Daughter was at bedside. Allergies Allergy/AdvReac Type Severity Reaction Status Date / Time tetanus toxoid, adsorbed Allergy Intermediate ARMS FACE Verified 12/16/23 15:56 AND NECK SWELLS UP lisinopril Allergy Unknown cough Verified 12/16/23 15:56 metformin AdvReac severe Verified 12/16/23 15:56 diarrhea Home Medications Medication Instructions Recorded Confirmed Type sodium chloride 0.65 % nasal spray 1 spray intranasal TID 12/06/20 12/16/23 History aerosol (Saline Nasal) pen needle, diabetic 32 gauge x #100 ea 10/04/21 08/28/23 Rx 5/32" (BD Ultra-Fine Hellen Pen Needle) losartan 100 mg tablet 100 mg PO DAILY 08/28/23 12/16/23 History insulin aspart U-100 100 unit/mL 70 unit (0.7 mL) subcut DAILY 90 08/29/23 12/16/23 Rx subcutaneous solution (Novolog days #70 mL U-100 Insulin aspart) insulin glargine 100 unit/mL (3 25 unit (0.25 mL) subcut DAILY #15 08/29/23 12/16/23 Rx mL) subcutaneous pen (Lantus mL Solostar U-100 Insulin) atorvastatin 10 mg tablet 10 mg PO DAILY #30 tabs 09/12/23 12/16/23 Rx insulin pump cartridge,automated #1 ea 12/09/23 Rx dose,BT with controller subcutaneous (Omnipod 5 G6 Intro Kit (Gen 5) subcutaneous cartridge with controller) insulin pump cart,automated,BT #45 ea 12/10/23 Rx (Omnipod 5 G6 Pods (Gen 5) subcutaneous cartridge) Past Med/Surg History Medical History Controlled type 2 diabetes mellitus Breast cancer (11/25/14) "Status post abnormal right breast mammogram Status post ultrasound-guided biopsy 11/25/2014 revealing infiltrating ductal carcinoma Estrogen receptor, progesterone receptor positive, and HER-2/claritza negative Status post lumpectomy and sentinel lymph node biopsy 12/29/2014 Stage [id number] Status post completion of radiation therapy to the right breast excisional cavity utilizing accelerated partial breast treatment completed 03/11/2015 received 3850 cGy" Hypertension Surgical History H/O colonoscopy H/O tubal ligation H/O: History of parotid gland removal History of appendectomy History of partial hysterectomy History of carpal tunnel surgery Family History Father Heart disease ID in his late 50s, CABG x 3 Diabetes Sister Heart disease ID at age 50 Social History Smoking Status: Never smoker Hx Alcohol Use: No Hx Substance Use: No Preferred Language: Montserratian Communication Ability: Effective Animal Pathologist Required: No Beliefs That Will Affect Care: None Current Living Situation: Spouse current occupational status: retired Feels Safe at Home: Yes caffeine: Yes Physical Activity Frequency: Daily Assistive Devices: None Review of Systems Review of Systems: All systems reviewed & are unremarkable except as noted in Subjective Physical Exam Physical Exam: General: Sitting up in bed, left sided epistaxis HEENT: EOMI, BOYD, MMM Chest: Clear breath sounds bilaterally, no wheezes or crackles CVS: Regular rate and rhythm, normal heart sounds, no murmur Abdomen: Soft, non tender, not distended, normal bowel sounds Neuro: Awake, alert, oriented, conversing well Extremities: No cyanosis, clubbing or edema Results & Data Results & Data Vital Signs (Past 12 Hours) Vital Signs Temp Pulse Pulse Resp BP BP Pulse Ox 12/16/23 17:07 55 L 168/86 H 12/16/23 17:07 55 L 13 168/86 H 99 12/16/23 16:44 58 L 20 223/88 H 98 12/16/23 16:40 60 200/86 H 12/16/23 16:22 64 17 197/106 H 100 12/16/23 16:15 58 L 175/93 H 12/16/23 16:10 58 L 16 175/93 H 100 12/16/23 15:53 149/102 H 12/16/23 15:53 65 17 98 12/16/23 15:51 72 191/101 H 12/16/23 15:50 70 18 100 12/16/23 15:49 77 14 95 12/16/23 15:49 194/101 H 12/16/23 15:45 206/103 H 12/16/23 15:45 74 14 100 12/16/23 15:44 90 16 100 12/16/23 15:25 12/16/23 15:11 36.6 C 69 20 195/109 H 100 O2 Del Method 12/16/23 17:07 12/16/23 17:07 Room Air 12/16/23 16:44 Room Air 12/16/23 16:40 12/16/23 16:22 Room Air 12/16/23 16:15 12/16/23 16:10 Room Air 12/16/23 15:53 12/16/23 15:53 12/16/23 15:51 12/16/23 15:50 12/16/23 15:49 12/16/23 15:49 12/16/23 15:45 12/16/23 15:45 12/16/23 15:44 12/16/23 15:25 Room Air 12/16/23 15:11 Laboratory Results Short CBC 12/16/23 12/16/23 Range/Units 15:25 19:36 WBC 7.63 (4.8-10.8) K/ul Hgb 13.2 12.6 (12.0-16.0) g/dl Hct 38.3 37.6 (37.0-47.0) % Plt Count 290 (130-400) K/uL BMP 12/16/23 15:25 Sodium 140 Potassium 3.9 Chloride 106 Carbon Dioxide 27 BUN 20 Creatinine 1.08 Glucose 80 Calcium 9.6 Liver Function 12/16/23 Range/Units 15:25 Total Bilirubin 0.8 (0.2-1.0) mg/dl AST 21 (13-39) U/L ALT 17 (7-52) U/L Alkaline Phosphatase 81 (34-104) U/L Albumin 4.5 (3.4-5.0) gm/dl Diagnostic Findings Chest CTA 12/16/23 15:19 CT angio chest PE protocol CLINICAL HISTORY: PE TECHNIQUE: Multidetector row helical CT of the chest was performed with angiographic protocol. Coronal and sagittal reformations were obtained. Coronal and sagittal MIPS were obtained from the axial data set and were submitted for review. Automated dose lowering techniques and/or adjustment according to patient size were utilized for this exam. Comparison: Comparison is made to CTA chest 12/06/2020 FINDINGS: Lungs and pleura: Normal. Heart and pericardium: Heart size is normal. No pericardial effusion. Vessels: No evidence of pulmonary embolism. Mediastinum and vega: Unremarkable. Chest wall and lower neck: Unremarkable. Abdomen: Unremarkable. Bones: Degenerative changes in the thoracic spine. ACDF is seen. IMPRESSION: No acute abnormality and in particular no evidence of pulmonary embolus. ACT 112: Negative or not required by law. Electronically signed by: Ronaldo Mattson M.D. 12/16/2023 4:[address] 12/16/23 15:20 CT SCAN OF THE BRAIN WITHOUT IV CONTRAST CLINICAL HISTORY: Neurological deficit. Stroke like symptoms. COMPARISON STUDY: CT of the brain dated 06/07/2016. TECHNIQUE: Unenhanced axial CT scan of the brain is performed from the vertex to the skull base. A dose lowering technique was utilized adhering to the principles of ALARA. CT DOSE: 1967.06 mGy.cm FINDINGS: Brain parenchyma: There is age-related involutional change noting mild subcortical and periventricular microangiopathic disease. There is no hemorrhage, mass effect, or evidence of acute territorial ischemia by CT criteria. Mineralization is noted in the basal ganglia. Jo-white matter differentiation is preserved. No extra-axial fluid collection is seen. Ventricles, sulci, cisterns: Prominent secondary to involutional change. Intracranial vasculature: There is atherosclerotic calcification of the cavernous carotid and vertebral arteries. Calvarium: Unremarkable. Sinuses and mastoids: Postoperative changes partially visualized in the maxillary antra. The visualized paranasal sinuses are clear. The mastoid air cells are well pneumatized. Orbits: The bony orbits are grossly intact. IMPRESSION: There is no hemorrhage, mass effect, or evidence of acute territorial ischemia by CT criteria. ACT 112: Negative or not required by law. Electronically signed by: Félix Ward M.D. 12/16/2023 3:55 PM Head CTA 12/16/23 15:20 CTA ANGIOGRAPHY OF THE HEAD CLINICAL HISTORY: neuro deficit, acute stroke suspected COMPARISON STUDY: MRA of the head June 07, 2016. TECHNIQUE: Helical axial images of the head were obtained following uneventful intravenous administration of 116 cc of Optiray. Sagittal and coronal reconstruc tions were viewed as well as maximal intensity projections on an independent 3-D workstation. Automated exposure control was utilized for the study. A dose lowering technique was utilized adhering to the principles of ALARA. FINDINGS: No acute intracranial hemorrhage is identified on the head CT which will be reported separately. The bilateral M1, M2, A1 and A2 segments are patent. There is no central vessel occlusion. There is no intracranial aneurysm. Posterior circulation is intact. There are bilateral posterior communicating arteries. There are postoperative findings within the maxilla and nasal bones. IMPRESSION: No central vessel occlusion. No intracranial aneurysm. ACT 112: Negative or not required by law. Electronically signed by: Rodrick Gonazlez M.D. 12/16/2023 4:10 PM Neck CTA 12/16/23 15:20 CT ANGIOGRAM OF THE NECK CLINICAL HISTORY: Neurological deficit. Stroke like symptoms. COMPARISON STUDY: No priors. TECHNIQUE: Following the IV administration of 116 of Optiray 350, CT angiogram of the neck was performed from the aortic arch to the skull base. Images are reviewed in the axial, sagittal, and coronal planes. 3-D MIPS images are created and assessed. IV contrast was administered without complication. All measurements were calculated based on NASCET criteria. A dose lowering technique was utilized adhering to the principles of ALARA. FINDINGS: Thoracic aorta: Visualized portions of the thoracic aorta are normal in caliber. The aortic arch demonstrates standard 3-vessel anatomy. Right carotid arterial system: The right common carotid artery is widely patent, as are the right internal and external carotid arteries. Left carotid arterial system: The left common carotid artery is widely patent, as are the left internal and external carotid arteries. Mild calcified plaque is seen in the carotid bulb. Vertebral arteries: The vertebral arteries are widely patent bilaterally and codominant. Subclavian arteries: Widely patent bilaterally. Intracranial vasculature: The visualized intracranial vessels at the skull base are patent. Jugular veins: Widely patent bilaterally. Brain parenchyma: The visualized brain parenchyma the skull base is within normal limits. Lung apices: Partially visualized upper lobe lung parenchyma appears clear. Soft tissues: The visualized pharyngeal soft tissues are normal in appearance noting angiographic phase technique. The oropharyngeal airway appears widely patent. There is asymmetric atrophy of the left parotid gland as compared to the right. The thyroid gland is normal in appearance. No cervical lymphadenopathy is seen. Skeletal structures: The visualized calvarium at the skull base appears intact. Postsurgical and degenerative change is noted in the cervical spine. Sinuses and mastoids: Postsurgical changes noted in the maxillary antra. The visualized nasal sinuses are clear. The mastoid air cells are well pneumatized. IMPRESSION: Unremarkable CT angiogram of the neck. ACT 112: Negative or not required by law. Electronically signed by: Félix Ward M.D. 12/16/2023 3:59 PM (5) Chest pain Chest pain type: unspecified Qualified Code(s): R07.9 - Chest pain, unspecified
[2023-12-16] MEDS: hydrALAZINE HCL 20 MG/ML VIAL ONE (17:52)
[2023-12-16] MEDS: OXYMETAZOLINE 0.05% 30 ML BTL ONE (18:01)
[2023-12-16] MEDS: TXA 10% Non-IV Routes 100 MG/ML VIAL ONE (18:02)
[2023-12-16] MEDS: TXA 10% Non-IV Routes 100 MG/ML VIAL NEB ONE (18:02)
[2023-12-16] MEDS ORDERED: STAT IV Infusion **Titration per Protocol STA (18:11)
[2023-12-16] MEDS: niCARdipine 25 MG in SODIUM CHLORIDE 0.9% 240 ML IV SCH (18:50)
[2023-12-16] MEDS: fentaNYL citrate PF 100 MCG/2 ML VIAL ONE (18:55)
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
[2023-12-16 19:58] LABS: Hematocrit (blood only) 37.6 % (37.0-47.0); Hemoglobin 12.6 g/dl (12.0-16.0)
[2023-12-16] MEDS: ACETAMINOPHEN 1,000 MG/100 ML VIAL IV PRN (20:05)
[2023-12-16] MEDS ORDERED: GLUCOSE 40% GEL 15 GM TUBE PO PRN (20:28)
[2023-12-16] MEDS ORDERED: GLUCAGON FOR INJ 1 MG VIAL SQ PRN (20:28)
[2023-12-16] MEDS ORDERED: GLUCOSE 10 TAB/TUBE PO PRN (20:28)
[2023-12-16] MEDS ORDERED: PHARMACY GLYCEMIC MGMT CONSULT PRN (20:28)
[2023-12-16] MEDS ORDERED: DEXTROSE 50% 50 ML SYRINGE IV PRN (20:28)
[2023-12-16] MEDS ORDERED: CARBOHYDRATES FOR HYPOGLYCEMIA PO PRN (20:28)
[2023-12-16] MEDS: fentaNYL citrate PF 100 MCG/2 ML VIAL IV STA (20:33)
[2023-12-16] MEDS ORDERED: INSULIN ASPART 100 UNITS/ML VIAL SC PRN (20:45)
[2023-12-16] MEDS ORDERED: Continuous Glucose Monitor SCH (20:45)
[2023-12-16] MEDS: HYDROmorphone INJ 0.5 MG/0.5 ML SYR IV PRN (20:50)
--- NOTE | 2023-12-16 21:01 | CT Scan Report ---
Exam(s): CT HEAD Without Contrast EXAM: CT Head Without Intravenous Contrast CLINICAL HISTORY: Reason for exam: Post thrombolytics severe headache. TECHNIQUE: Axial computed tomography images of the head/brain without intravenous contrast. CTDI is 35.72 mGy and DLP is 547.75 mGy-cm. Automated exposure control was utilized for the study. A dose lowering technique was utilized adhering to the principles of ALARA. COMPARISON: No relevant prior studies available. FINDINGS: Brain: No hemorrhage, extra-axial fluid collection, mass effect, or edema. Ventricles: Unremarkable. Bones/joints: Unremarkable. No fracture. Soft tissues: Unremarkable. Sinuses: Postsurgical changes in the maxillary sinuses. Mastoid air cells: Unremarkable as visualized. IMPRESSION: 1. No acute intracranial abnormality. Electronically signed by: Rodríguez Mejia MD 12/16/23 21:00 PM
[2023-12-16] MEDS: INSULIN, Rapid-Acting PUMP SCH (21:24)
[2023-12-17] MEDS: INSULIN ASPART PER UNIT CHARGE SC SCH ×2 (00:25→00:26)
--- NOTE | 2023-12-17 00:40 | Magnetic Resonance Report ---
Exam(s): MRI HEAD Without Contrast EXAM: MR Head Without Intravenous Contrast CLINICAL HISTORY: Reason for exam: CVA. TECHNIQUE: Magnetic resonance images of the head/brain without intravenous contrast in multiple planes. Mild motion artifact. COMPARISON: Head CT done earlier the same day and MRI brain 06/07/16. FINDINGS: Brain: There is focal susceptibility artifact in the right medial occipital lobe near the splenium corpus callosum that probably reflects chronic microhemorrhage. No acute hemorrhage. No acute infarct, mass or mass-effect. Mild atrophy and chronic white matter disease. Ventricles: No hydrocephalus or midline shift. Bones/joints: No acute bony lesion. Soft tissues: No scalp hematoma. Sinuses: Clear. Mastoid air cells: No mastoid effusion. IMPRESSION: 1. Mild age-related findings, and chronic microhemorrhage right medial occipital lobe. 2. No acute infarct, bleed, or acute intracranial abnormality. Electronically signed by: Judy Tadeo M.D. 12/17/23 00:39 AM
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
--- OUTSIDE RECORDS SUMMARY | 2023-12-17 04:07 | External Medical Summary | Summary of Care ---
Author Name Unknown Organization [facility] Address [address] [place] [place] [address] Phone [phone] Care Team Providers Care Electronic Musical Instrument Repairer Name Role Phone Edwin Zapata MD Primary Care Provider [phone] Reason for Visit * Reason Comments Post-Op R foot Encounter Details Date Type Department Care Team (Late st Contact Info) Description 10/22/2023 8:00 AM EST Office Visit Podiatry [facility] [address] [place] [address] Kaylin Evans DPM [address] [place] [address] Examination following surgery*; Hallux limitus of right foot; Right foot pain Allergies Active Allergy Reactions Criticality Noted Date Comments Lisinopril Cough 08/03/2014 Tetanus Antitoxin Anaphylaxis High 03/17/1998 Throat swells shut Tetanus Toxoid Anaphylaxis High 03/29/2018 documented as of this encounter (statuses as of 10/22/2023) Medications Medication Sig Dispensed Refills Start Date End Date Status Insulin Aspart 100 UNIT/ML Subcutaneous Solution (NovoLOG) 40 Units by Device route once as needed. 0 Active Dexcom G6 Sensor Use as directed. 0 Ac tive Dexcom G6 Transmitter Use as directed. 0 Active Fluticasone Propionate 50 MCG/ACT Nasal Suspension (Flonase Allergy Relief) Administer 1 [place] into nostril in the morning. 16 g 3 01/28/2023 Active Omnipod DASH Pods (Gen 4) change every 72 hrs 30 Each 3 04/22/2023 Active Losartan Potassium 100 MG Oral Tablet (Cozaar)Indication s:HTN, goal below 130/80 Take 1 Tablet by [...] Active Losartan Potassium 25 MG Oral Tablet (Cozaar)Indication s:HTN, goal below 130/80 Take 1 Tablet by mouth in the morning. 90 Tablet 3 09/04/2023 Active Atorvastatin Calcium 10 MG Oral Tablet (Lipitor) take 1 tablet by mouth daily 30 Tablet 5 09/12/2023 Active documented as of this encounter (statuses as of 10/22/2023) Active Problems Problem Noted Date Diagnosed Date [...] as of this encounter (statuses as of 10/22/2023) Resolved Problems Problem Noted Date Diagnosed Date [...] as of this encounter (statuses as of 10/22/2023) Social History Tobacco Use Types Packs/Day Years [...] on file documented as of this encounter Functional Status Functional Status Response [...] as of this encounter Progress Notes * Kaylin Evans DPM - 10/22/2023 8:05 AM EST Podiatry Post-Op Note [facility] Name: Eboni Garcia : 1955 Date: 10/22/2023 POST-OP VISIT: #4 DATE OF SURGERY: 06/27/2023 PROCEDURE: 1st MPJ fusion, right SUBJECTIVE: Patient presents today for follow up of the above mentioned procedure. Pt states she has been doingwell. Walking to tolerance in normal shoes. No pain, happy with her results. Weightbearing Status: Left Lower Extremity: weightbearing Right Lower Extremity: weightbearing Assistive Device: None Post-Op Related Medications: pain medications: OTC PRN OBJECTIVE: Dressing: None Incision is well coapted. Edema controlled. Good correction noted. No active signs of infection noted. No pain. DIAGNOSTIC STUDIES: 3 views of the right foot- Hardware intact with bony healing noted. No loosening noted. ASSESSMENT: S/p 1st MPJ fusion, right foot PLAN: - Pt doing well. Incision is well coapted. Minimal edema. Very happy with results. - Continue WBAT in normal shoes. - Continue with OTC pain medication PRN. - Activity to tolerance - Pt to RTC PRN. Instructed to call with any problems or questions. Kaylin Evans DPM documented in this encounter Nursing Notes * Vika Montes LPN - 10/22/2023 7:54 AM EST Pt presents for post op visit #4, R foot 1st MPJ fusion 06/27/2023. Feels 'really good'. documented in this encounter Plan of Treatment Upcoming Encounters Date Type Department Care Team (Late st Contact Info) Description 11/06/2023 7:40 AM EST Office Visit Family [facility] [address] [place] [address] Edwin Zapata MD [address] [place] [address] Pending Results Name Type Priority Associated Diagnoses Date /Time XR FOOT 3 OR MORE VIEWS Medical Imaging Routine Examination following surgery 10/22/2023 8:03 AM EST Scheduled Procedures Name Priority Associated Diagnoses Date/Ti [...] this encounter Medical Devices Implanted Type Area Stock Analyst Device Identifier Shelf Expiration Date Model / Serial / Lot 4.0 X 16mm Fixed Screw Implanted:Qty: 2 on 03/23/2015 by Alex Rick MD at [place] [facility] N/A: Spine Cervical Medtronic [id number] / / Screw Dolores 6 [id number] - [id number] Implanted:Qty: 1 on 04/04/2018 by Inez Torres MD at OR [facility] N/A: Maxilla SYNTHES MAXILLOFACIAL .236 .01 / / System Implant Speedbridge - [id number] - [id number] Implanted:Qty: 1 on 05/19/2018 by Desean Santana DO at OR [facility] Left: Shoulder [employer] 02/21/2020 AR-2600SBS -4 / AR-2600SBS -4 / [id number] Sheeting Silicone .040 - [id number] Implanted:Qty: 1 on 08/13/2018 by Inez Torres MD at OR [facility] N/A: Nose ALLIED BIOMEDICAL 07/23/2022 23-700- 40 / / [id number] Screw Bn T[address] [place] 2.7x18mm - [id number] Implanted:Qty: 1 on 06/27/2023 by Kaylin Evans DPM at OR [facility] Right: Foot LUISA : ORTHOPAEDICS [id number] / / documented as of this encounter Visit Diagnoses Diagnosis Examination following surgery- Primary Follow-up examination, following unspecified surgery Hallux limitus of right foot Right foot pain Pain in limb documented in this encounter Advance Directives Documents on File Type Date Recorded Patient Salon Shampoo Assistant Expl anation Advance Directives and Living Will [...] the patient have Health Care Power of Heel Cover Softener? No Full Code 03/23/2015 1:50 PM 03/24/2015 5:02 PM This or chela reflects the patients wishes and were consensually agreed upon. Question Answer Comments Discussion of Advance Directives occurred with: Patient Does the patient have a Living Will? No Does the patient have Health Care Power of Heel Cover Softener? No Full Code 03/23/2015 6:23 AM 03/23/2015 1:50 PM This or chela reflects the patients wishes and were consensually agreed upon. Question Answer Comments Discussion of Advance Directives occurred with: Not Discussed Does the patient have a Living Will? No Does the patient have Health Care Power of Heel Cover Softener? No Care Teams Electronic Musical Instrument Repairer Relationship Specialty Start Date End Date Edwin Zapata MD [address] [facility] [place] [address] PCP - General Family Medicine 12/13/20 documented as of this encounter
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
--- OUTSIDE RECORDS SUMMARY | 2023-12-17 04:07 | External Medical Summary | Summary of Care ---
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 Results: Lab Results Component Value Date/Time HEMOGLOBIN A1C - [facility] 5.4 09/03/2023 02:09 PM HEMOGLOBIN A1C - [facility] 5.3 09/11/2022 02:33 PM HEMOGLOBIN A1C - [facility] 6.1 (H) 10/27/2021 12:02 PM HEMOGLOBIN A1C, DBS - [facility] 5.6 07/04/2023 01:01 PM Obesity, Class II, BMI 35-39.9, isolated (see actual BMI) -continue to eat healthy and exercise BMI Readings from Last 3 Encounters: 10/04/23 34.50 kg/m 09/18/23 32.59 kg/m 06/27/23 32.60 kg/m HTN, goal below 130/80 - Med reconciliation completed and compliance discussed. - pt to continue present medications. BP Readings from Last 3 Encounters: 10/04/23 124/70 09/18/23 142/80 09/03/23 124/80 History of breast cancer -continue yearly mammograms DDD (degenerative disc disease), cervical -continue following with pcp Follow Up: Return in 1 year (on 10/04/2024) for 12 month Subsequent Adult Wellness Visit. | For: 12 month Subsequent Adult Wellness Visit | Check-out note: 12 month Subsequent Adult Wellness Visit Would patient like to schedule next AWV visit? Yes Karen Almeida RN AD8 Dementia Screening Interview Person answering questions: patient Remember, "Yes, a change" indicates that there has been a change in the last several years caused by cognitive (thinking and memory) problems 1. Problems with judgement (eg: problems making decisions, bad financial decisions, problems with thinking). No (0) 2. Less interest in hobbies/activities. No (0) 3. Repeats the same things over and over (questions, stories, or statements). No (0) 4. Trouble learning how to use a tool, appliance, or gadget (eg: VCR, computer, microwave, remote control). No (0) 5. Forgets correct month or year. No (0) 6. Trouble handling complicated financial affairs (eg: balancing checkbook, income taxes, paying bills). No (0) 7. Trouble remembering appointments. No (0) 8. Daily problems with thinking and/or memory. No (0) TOTAL AD8: 0 - AD8 Dementia Screening Score The final score is a sum of the number items marked "Yes, A Change". 0 - 1: Normal cognition; 2 or greater: Cognitive impairments is likely to be present - further testing required documented in this encounter Miscellaneous Notes * Pt Handout (on AVS) - Karen Almeida RN - 10/04/2023 9:20 AM EST [id number] Preventing Falls: How to Prepare and What to Do Falling is not something you want to think about. But it can make a big difference to plan ahead. If you're prepared, you'll know how to get help. And you'll be less likely to panic if you fall. Thismeans you'll be able to do what's needed to get help right away. How to prepare Have someone check on you daily, either in person or by phone. Keep a list of emergency numbers near the phone. Always have a way to call for help. Keep a cell phone with you at all times. Or talk with your healthcare provider about how to set up a home monitoring service. This involves wearing a small device around your neck or wrist. If you fall, you can press the button on the device. This alerts emergency responders. Talk with your healthcare provider about an exercise program that's right for you. Regular exercise may reduce the risk of falling and the risk for injury related to a fall. Have good lighting in your home. Don't use throw rugs, because they can raise your risk of tripping and falling. Add grab bars in the bathroom to help reduce the risk of falling. Small changes canmake your home safer. Talk with your healthcare provider about making your home safer. What to do if you fall Above all, try to stay calm: If you start to fall, try to relax your body. This will reduce the impact of the fall. After you fall, press your monitor button, or use your phone to call for help. Don't moreau to get up. First, make sure you're not hurt. Roll onto your side, then crawl to a chair. Pull yourself up onto the chair slowly. Get checked if you struck your head, lost consciousness, were confused afterward, or have any other concerns for injury. Tell your healthcare provider that you fell. They can check you for injuries as needed, try to determine what made you fall, and help prevent you from falling again. A note to family and friends If you're with a loved one when they start to fall, don't try to stop the fall. Ease the person to the floor carefully, so neither of you gets hurt. Don't leave the person alone. And don't try to move them, especially if they may have hurt their head or neck. Check for injuries. If help is needed right away, call 911. Last Reviewed Date: 08/23/202219997021-5226 [employer]. All rights reserved. This information is not intended as a substitute for professional medical care. Always follow your healthcare professional's instructions. * Pt Handout (on AVS) - Karen Almeida RN - 10/04/2023 9:20 AM EST Images from the original note were not included. [id number] Exercises to Prevent Falls Certain types of exercises may help make you less likely to fall. Try the ones below or do other exercises that your healthcare provider suggests. Depending on your health, you may need to start slowly. Don't let that stop you. Even small amountsof exercise can help you. Talk with your healthcare provider before starting any exercise program. Improve balance Many types of exercise can help improve balance. Richard chi and yoga are good examples. Here's anotherone to try. You can do it anytime and almost anywhere. Stand next to a counter or solid support. Push yourself up onto your tiptoes. Hold for 5 seconds. If you start to lose your balance, hold on to the counter. Rest and repeat 5 times. Work up to holding for 20 to 30 seconds, if you can. Increase flexibility Being more flexible makes it easier for you to move around safely. Try exercises like the seatedhamstring stretch. o Sit in a chair and put one foot on a stool. o Straighten your leg and reach with both hands down either side of your leg. Reach as far down your leg as you can. o Hold for about 20 seconds. o Go back to the starting position. Then repeat 5 times. Switch legs. o o Build strength o Resistance exercises help build strength. You can do them without equipment. Or you can use weights, elastic bands, or special machines. One such exercise is called the biceps curl. You can hold a 1-pound weight or even a can of soup. Do this exercise at least 3 times a week. Strive for every day. Sit up straight in a chair. Keep your elbow close to your body and your wrist straight. Bend your arm, moving your hand up to your shoulder. Then slowly lower your arm. Repeat 5 times. Switch to the other arm. Build your staying power Aerobic exercises make your heart and lungs stronger so you can keep moving longer. Walking and swimming are 2 of the best types of exercises you can do. Using a stationary bike is great, too. Find an aerobic exercise that you enjoy. Start slowly and build up. Even 5 minutes is helpful. Aim for a goal of 30 minutes, at least 3 times a week. You don't have to do 30 minutes in 1 session. Break it up and walk a little throughout the day. Starting out safely and slowly Start easy. Slowly work up to doing more. Talk with your healthcare provider about the best exercises for you. Call senior centers or health clubs about exercise programs. If needed, have a family member watch you walk every so often to check your stability. Exercise with a friend. Choose an activity you both enjoy. Be sure to gently warm up and cool down. Drink fluids, such as water, to stay hydrated. If your provider recommended that you limit fluids, ask them how much is OK to drink while exercising. Consider richard chi or yoga to strengthen your balance. Try exercises that you can do anytime, anywhere. Here are 2 examples. Have someone with you whenyou first try these: o Practice walking by placing one foot right in front of the other. o Stand up and sit down 10 times. Repeat this throughout the day. Last Reviewed Date: 07/24/202219992449-4221 [employer]. All rights reserved. This information is not intended as a substitute for professional medical care. Always follow your healthcare professional's instructions. documented in this encounter Plan of Treatment Upcoming Encounters Date Type Department Care Team (Late st Contact Info) Description 10/22/2023 8:00 AM EST Office Visit Podiatry [facility] [address] [facility] [place] [address] Kaylin Eavns DPM [address] [facility] [place] [address] 11/06/2023 7:40 AM EST Office Visit Family Practice [facility] [address] [facility] [place] [address] Edwin Zapata MD [address] [place] [address] Scheduled Procedures Name Priority Associated Diagnoses Date/Ti me COLONOSCOPY FLEXIBLE PROXIMAL DIAGNOSTIC Recall History of colon polyps Health Maintenance Due Date Last Done Comments DXA Scan 1955 COVID-19 Vaccine (#1) 1955 Pneumococcal Vaccine: 65+ Years (1 - PCV) 02/13/1962 Diabetic Foot Exam 02/13/1974 Zoster Vaccines (1 of 2) 02/13/2006 Hepatitis B (1 of 3 - Risk 3-dose series) 2016 HbA1c 03/04/2024 09/03/2023, 08/24, 10/27/2021, Additional history [...] this encounter Medical Devices Implanted Type Area Citrus Peeler Device Identifier Shelf Expiration Date Model / Serial / Lot 4.0 X 16mm Fixed Screw Implanted:Qty: 2 on 03/23/2015 by Alex Rick MD at OR [facility] N/A: Spine Cervical Medtronic [id number] / / Screw Dolores 6 .236.01 - [id number] Implanted:Qty: 1 on 04/04/2018 by Inez Torres MD at OR [facility] N/A: Maxilla SYNTHES MAXILLOFACIAL .236 .01 / / System Implant Speedbridge - [id number] - [id number] Implanted:Qty: 1 on 05/19/2018 by Desean Santana DO at OR [facility] Left: Shoulder [employer] 02/21/2020 AR-2600SBS -4 / AR-2600SBS -4 / [id number] Sheeting Silicone .040 - [id number] Implanted:Qty: 1 on 08/13/2018 by Inez Torres MD at OR [facility] N/A: Nose ALLIED BIOMEDICAL 07/23/2022 23-700- 40 / / [id number] Screw Bn T[address] [address] Lc 2.7x18mm - [id number] Implanted:Qty: 1 on 06/27/2023 by Kaylin Evans DPM at OR [facility] Right: Foot LUISA : ORTHOPAEDICS [id number] / / documented as of this encounter Visit Diagnoses Diagnosis Routine general medical examination at a health care facility- Primary Risk and functional assessment Screening for unspecified condition Type 2 diabetes mellitus with hemoglobin A1c goal of less than 8.0% ([facility]) Obesity, Class II, BMI 35-39.9, isolated (see actual BMI) Morbid obesity HTN, goal below 130/80 Unspecified essential hypertension History of breast cancer Personal history of malignant neoplasm of breast DDD (degenerative disc disease), cervical Degeneration of cervical intervertebral disc documented in this encounter Advance Directives Documents on File Type Date Recorded 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 No Full Code 03/23/2015 1:50 PM 03/24/2015 5:02 PM This or chela reflects the patients wishes and were consensually agreed upon. Question Answer Comments Discussion of Advance Directives occurred with: Patient Does the patient have a Living Will? No Does the patient have Health Care Power of J2Ee Application Developer? No Full Code 03/23/2015 6:23 AM 03/23/2015 1:50 PM This or chela reflects the patients wishes and were consensually agreed upon. Question Answer Comments Discussion of Advance Directives occurred with: Not Discussed Does the patient have a Living Will? No Does the patient have Health Care Power of J2Ee Application Developer? No Care Teams Chemistry Laboratory Technician Relationship Specialty Start Date End Date Edwin Zapata MD [address] [facility] [place] [address] PCP - General Family Medicine 12/13/20 documented as of this encounter
--- OUTSIDE RECORDS SUMMARY | 2023-12-17 04:07 | External Medical Summary ---
Author Name Unknown Address Unknown Organization K01:[facility] [place] [address] [facility] [place] [address] Laboratory Report Ordering Provider Test Date Status EDUIN MENSAH 09/18/2023 07:16:13 Final Observation Date Value Abnormality Reference (Units ) Status Adenovirus DNA [Presence] in Nasopharynx by MAXIME with non-probe detection 09/18/2023 07:16:13 Negative Negative Final Human coronavirus 229E RNA [Presence] in Nasopharynx by MAXIME with non-probe detection 09/18/2023 07:16:13 Negative Negative Final Human coronavirus HKU1 RNA [Presence] in Nasopharynx by MAXIME with non-probe detection 09/18/2023 07:16:13 Negative Negative Final Human coronavirus NL63 RNA [Presence] in Nasopharynx by MAXIME with non-probe detection 09/18/2023 07:16:13 Negative Negative Final Human coronavirus OC43 RNA [Presence] in Nasopharynx by MAXIME with non-probe detection 09/18/2023 07:16:13 Negative Negative Final SARS-CoV-2 (COVID-19) RNA [Presence] in Nasopharynx by MAXIME with non-probe detection 09/18/2023 07:16:13 Negative Negative Final Human metapneumovirus RNA [Presence] in Nasopharynx by MAXIME with non-probe detection 09/18/2023 07:16:13 Negative Negative Final Rhinovirus+Enterovirus RNA [Presence] in Nasopharynx by MAXIME with non-probe detection 09/18/2023 07:16:13 Negative Negative Final Influenza virus A RNA [Presence] in Nasopharynx by MAXIME with non-probe detection 09/18/2023 07:16:13 Negative Negative Final Influenza virus B RNA [Presence] in Nasopharynx by MAXIME with non-probe detection 09/18/2023 07:16:13 Negative Negative Final Parainfluenza virus 1 RNA [Presence] in Nasopharynx by MAXIME with non-probe detection 09/18/2023 07:16:13 Negative Negative Final Parainfluenza virus 2 RNA [Presence] in Nasopharynx by MAXIME with non-probe detection 09/18/2023 07:16:13 Negative Negative Final Parainfluenza virus 3 RNA [Presence] in Nasopharynx by MAXIME with non-probe detection 09/18/2023 07:16:13 Negative Negative Final Parainfluenza virus 4 RNA [Presence] in Nasopharynx by MAXIME with non-probe detection 09/18/2023 07:16:13 Negative Negative Final Respiratory syncytial virus RNA [Presence] in Nasopharynx by MAXIME with non-probe detection 09/18/2023 07:16:13 Negative Negative Final Bordetella pertussis.pertussis toxin promoter region [Presence] in Nasopharynx by MAXIME with non-probe detection 09/18/2023 07:16:13 Negative Negative Final Chlamydophila pneumoniae DNA [Presence] in Nasopharynx by MAXIME with non-probe detection 09/18/2023 07:16:13 Negative Negative Final Mycoplasma pneumoniae DNA [Presence] in Nasopharynx by MAXIME with non-probe detection 09/18/2023 07:16:13 Negative Negative Final Bordetella parapertussis [id number] DNA [Presence] in Nasopharynx by MAXIME with non-probe detection 09/18/2023 07:16:13 Negative Negative Final
The primers that detect Rhinovirus may cross react with some Enterorviruses. The validation of bronchial specimens, tracheal aspirates, and throats for this assay was developed and performance characteristics determined by [employer]. The validation of alternate specimen types has not been cleared or approved by the U.S. Food and Drug Administration (FDA). It has been determined that such clearance or approval is not necessary. Performing Location [facility] - [address] [facility] [place]. [facility] [address]
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
--- OUTSIDE RECORDS SUMMARY | 2023-12-17 04:08 | External Medical Summary ---
Author Name Unknown Address Unknown Organization [id number]:[facility] [place] [address] [place] [address] Laboratory Report Ordering Provider Test Date Status SONIA RAGSDALE 09/03/2023 14:09:29 Final Observation Date Value Abnormality Reference (Units ) Status HbA1C 09/03/2023 14:09:29 5.4 4.0-5.6 (% ) Final The use of HbA1c to monitor glycemic status is based on normal hemoglobin and HbA composition. This test should not be used in patients with abnormal hemoglobin that affects the half life of the red blood cell or the in vivo glycation rates. Glucose, estimated average 09/03/2023 14:09:29 108 <126 (mg/dL) Final Performing Location [facility] [place] - [address] [place] [address]
--- OUTSIDE RECORDS SUMMARY | 2023-12-17 04:08 | External Medical Summary | Summary of Care ---
Author Name Unknown Organization [facility] Address [address] [place] [facility] [place] [address] Phone [phone] Care Team Providers Care Brass Molder Helper Name Role Phone Edwin Zapata MD Primary Care Provider [phone] Reason for Visit * Reason Onset Date Comments Health Maintenance 09/04/2023 Encounter Details Date Type Department Care Team (Late st Contact Info) Description 09/04/2023 Telephone Family Practice [facility] [address] [place] [address] Edwin Zapata MD [address] [place] [id number] Health Maintenance Allergies Active Allergy Reactions Criticality Noted Date Comments Lisinopril Cough 08/03/2014 Tetanus Antitoxin Anaphylaxis High 03/17/1998 Throat swells shut Tetanus Toxoid Anaphylaxis High 03/29/2018 documented as of this encounter (statuses as of 09/05/2023) Medications Medication Sig Dispensed Refills Start Date End Date Status Insulin Aspart 100 UNIT/ML Subcutaneous Solution (NovoLOG) 40 Units by Device route once as needed. 0 Active Dexcom G6 Sensor Use as directed. 0 Ac tive Dexcom G6 Transmitter Use as directed. 0 Active Fluticasone Propionate 50 MCG/ACT Nasal Suspension (Flonase Allergy Relief) Administer 1 [place] into nostril in the morning. 16 g 3 01/28/2023 Active Omnipod DASH Pods (Gen 4) change every 72 hrs 30 Each 3 04/22/2023 Active oxyCODONE-Acetamin ophen 5-325 MG Oral Tablet (Percocet) Take 1 Tablet by mouth every 4 hours as needed for Mild to Moderate Pain. 20 Tablet 0 06/27/2023 Active Additional Information Patient not taking.Reported on 09/03/2023 Losartan Potassium 100 MG Oral Tablet (Cozaar)Indication [...] the morning. 90 Tablet 3 09/04/2023 Active documented as of this encounter (statuses as of 09/05/2023) Active Problems Problem Noted Date Diagnosed Date [...] as of this encounter (statuses as of 09/05/2023) Resolved Problems Problem Noted Date Diagnosed Date [...] as of this encounter (statuses as of 09/05/2023) Social History Tobacco Use Types Packs/Day Years [...] encounter Miscellaneous Notes * Telephone Encounter - Katt Ramsey LPN - 09/04/2023 9:31 AM EST Care Gaps Comprehensive Care Outreach Last Office/Telemedicine Visit: 09/03/2023 (in office), 11/13/2021 (telemedicine) Next Office Visit: 11/06/2023 Hemoglobin AIC Results: Lab Results Component Value Date/Time HEMOGLOBIN A1C - [facility] 5.4 09/03/2023 02:09 PM HEMOGLOBIN A1C - [facility] 5.3 09/11/2022 02:33 PM HEMOGLOBIN A1C - [facility] 6.1 (H) 10/27/2021 12:02 PM HEMOGLOBIN A1C, DBS - [facility] 5.6 07/04/2023 01:01 PM Reviewed Health Maintenance below: Health Maintenance Topic Date Due DXA Scan Never done COVID-19 Vaccine (1) Never done Pneumococcal Vaccine: 65+ Years (1 - PCV) Never done Diabetic Foot Exam Never done Zoster Vaccines (1 of 2) Never done Hepatitis B (1 of 3 - Risk 3-dose series) Never done Depression Screening 10/03/2023 Mammogram 11/05/2023 Saqib werner Mamm falready scheduled Care Gap Outreach Action Taken: Myportal message sent documented in this encounter Plan of Treatment Upcoming Encounters Date Type Department Care Team (Late st Contact Info) Description 10/04/2023 9:00 AM EST Nurse Only Ancillary [facility] [place] [address] [facility] [place] [address] Shaun Nurse Annual Wellness [facility] [address] [place] [address] 10/22/2023 8:00 AM EST Office Visit Podiatry [facility] [address] [place] [address] Kaylin Evans DPM [address] [place] [address] 11/06/2023 7:40 AM EST Office Visit Family Practice [facility] [address] [place] [address] Edwin Zapata MD [address] [place] [address] Scheduled Procedures Name Priority Associated Diagnoses Date/Ti [...] this encounter Medical Devices Implanted Type Area Bin Tripper Operator Device Identifier Shelf Expiration Date Model / Serial / Lot 4.0 X 16mm Fixed Screw Implanted:Qty: 2 on 03/23/2015 [place] Rick [place] [facility] [place] Spine Cervical Medtronic [id number] / / Screw Dolores 6 .236.01 - [id number] Implanted:Qty: 1 on 04/04/2018 by Inez Torres MD [place] [facility] [place]: Maxilla SYNTHES MAXILLOFACIAL / / System Implant Speedbridge - [id number] - [id number] Implanted:Qty: 1 on 05/19/2018 by Desean Santana DO at OR [facility] Left: Shoulder [employer] 02/21/2020 AR-2600SBS -4 / AR-2600SBS -4 / [id number] Sheeting Silicone .040 - [id number] Implanted:Qty: 1 on 08/13/2018 by Inez Torres MD [place] [facility] [place]: Nose ALLIED BI[employer] 07/23/2022 23-700- 40 / / [id number] Screw Bn T8 Ft [address] Lc 2.7x18mm - [id number] Implanted:Qty: 1 on 06/27/2023 by Kaylin Evans DPM at OR [facility] Right: Foot LUISA : ORTHOPAEDICS [id number] / / documented as of this encounter Advance Directives Documents on File Type Date Recorded 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 No Full Code 03/23/2015 1:50 PM 03/24/2015 5:02 PM This or chela reflects the patients wishes and were consensually agreed upon. Question Answer Comments Discussion of Advance Directives occurred with: Patient Does the patient have a Living Will? No Does the patient have Health Care Power of Door Fitter? No Full Code 03/23/2015 6:23 AM 03/23/2015 1:50 PM This or chela reflects the patients wishes and were consensually agreed upon. Question Answer Comments Discussion of Advance Directives occurred with: Not Discussed Does the patient have a Living Will? No Does the patient have Health Care Power of Door Fitter? No Care Teams Brass Molder Helper Relationship Specialty Start Date End Date Edwin Zapata MD [address] [facility] [place] [address] PCP - General Family Medicine 12/13/20 documented as of this encounter
--- OUTSIDE RECORDS SUMMARY | 2023-12-17 04:08 | External Medical Summary ---
Author Name Unknown Address Unknown Organization K01:[facility] [place] - [address] [place] [address] Laboratory Report Ordering Provider Test Date Status SONIA RAGSDALE 09/03/2023 14:21:01 Final Normal: <30 mg/g creatinine< br/>High: 30-300 mg/g creatinine
Very High: >300 mg/g creatinine
Nephrotic: >2200 mg/g creatinine Observation Date Value Abnormality Reference (Units ) Status Albumin, Urine 09/03/2023 14:21:01 <1.20 (mg/dL) Final Creatinine, Urine 09/03/2023 14:21:01 66 (mg/dL) Final Albumin/Creatinine [Mass Ratio] in Urine 09/03/2023 14:21:01 <18 <30 (mg/g Creat) Final Performing Location [facility] [place] - [address] [place] [address]
--- OUTSIDE RECORDS SUMMARY | 2023-12-17 04:08 | External Medical Summary | Summary of Care ---
Author Name Unknown Organization [facility] Address [address] [place] [facility] [place] [address] Phone [phone] Care Team Providers Care Commercial Plumber Name Role Phone Edwin Zapata MD Primary Care Provider [phone] Reason for Visit * Reason Onset Date Comments Health Maintenance 09/04/2023 Encounter Details Date Type Department Care Team (Late st Contact Info) Description 09/04/2023 Telephone Family Practice [facility] [address] [place] [address] Edwin Zapata MD [address] [place] [id number] Health Maintenance Allergies Active Allergy Reactions Criticality Noted Date Comments Lisinopril Cough 08/03/2014 Tetanus Antitoxin Anaphylaxis High 03/17/1998 Throat swells shut Tetanus Toxoid Anaphylaxis High 03/29/2018 documented as of this encounter (statuses as of 09/04/2023) Medications Medication Sig Dispensed Refills Start Date End Date Status Insulin Aspart 100 UNIT/ML Subcutaneous Solution (NovoLOG) 40 Units by Device route once as needed. 0 Active Dexcom G6 Sensor Use as directed. 0 Ac tive Dexcom G6 Transmitter Use as directed. 0 Active Fluticasone Propionate 50 MCG/ACT Nasal Suspension (Flonase Allergy Relief) Administer 1 [place] into nostril in the morning. 16 g [...] as of this encounter (statuses as of 09/04/2023) Active Problems Problem Noted Date Diagnosed Date [...] as of this encounter (statuses as of 09/04/2023) Resolved Problems Problem Noted Date Diagnosed Date [...] as of this encounter (statuses as of 09/04/2023) Social History Tobacco Use Types Packs/Day Years [...] Team (Late st Contact Info) Description 09/04/2023 1:30 PM EST Imaging Radiology [place] [address] [place] [address] 09/04/2023 2:00 PM EST Imaging Radiology [address] [place] [address] 10/04/2023 9:00 AM EST Nurse Only Ancillary [facility] [address] [place] [address] Shaun, Nurse Annual Wellness [facility] [address] [place] [address] 10/22/2023 8:00 AM EST Office Visit Podiatry [facility] [address] [place] [address] Kaylin Evans DPM [address] [place] [address] 11/06/2023 7:40 AM EST Office Visit Family Practice [facility] [address] [place] [address] Edwin Zapata MD [address] [facility] [place] [address] Scheduled Procedures Name Priority Associated Diagnoses Date/Ti me COLONOSCOPY FLEXIBLE PROXIMAL DIAGNOSTIC Recall History of colon polyps Health Maintenance Due Date Last Done Comments DXA Scan 1955 COVID-19 Vaccine (#1) 1955 Pneumococcal Vaccine: 65+ Years (1 - PCV) 02/13/1962 Diabetic Foot Exam 02/13/1974 Zoster Vaccines (1 of 2) 02/13/2006 Hepatitis B (1 of 3 - Risk 3-dose series) 2016 Depression Screening 10/03/2023 10/03/2022 Mammogram 11/05/2023 11/05/2022, 12/2021, 10/26/2020, Additional history exists HbA1c 03/04/2024 09/03/2023, 08/24, 10/27/2021, Additional history exists Diabetic Eye Exam 04/15/2024 04/15/2023, 10/02/2021 GFR 04/30/2024 04/30/2023, 08/24, 12/28/2021, Additional history exists COLONOSCOPY-EVERY 5 YRS AGES 18-100 06/05/2024 06/05/2019, 06/05/2019, 07/09/2017, Additional history exists Albumin/Creatinine Ratio 09/03/2024 023, 07/29/2023, 10/27/2021 Lipid Panel 09/03/2028 09/03/2023, 08/23, 10/27/2021, Additional history exists GARDASIL-HPV IMMUNIZATION SERIES Aged Out No longer eligible based on patient's age to complete this topic MENINGOCOCCAL (MENACTRA/MENVEO) Aged Out No longer eligible based on patient's age to complete this topic documented as of this encounter Medical Devices Implanted Type Area Tube And Manifold Builder Device Identifier Shelf Expiration Date Model / Serial / Lot 4.0 X 16mm Fixed Screw Implanted:Qty: 2 on 03/23/2015 by Alex Rick MD [place] [facility] [place] Spine Cervical Medtronic [id number] / / Screw Dolores 6 .503.236.01 - [id number] Implanted:Qty: 1 on 04/04/2018 by Inez Torres MD [place] [facility] [place]: Maxilla SYNTHES MAXILLOFACIAL 503.236 .01 / / System Implant Speedbridge - [id number] - [id number] Implanted:Qty: 1 on 05/19/2018 by Desean Santana DO at OR [facility] Left: Shoulder [employer] 02/21/2020 AR-2600SBS -4 / AR-2600SBS -4 / [id number] Sheeting Silicone .040 - [id number] Implanted:Qty: 1 on 08/13/2018 by Inez Torres MD [place] [facility] [place]: Nose ALLIED BI[employer] 07/23/2022 23-700- 40 / / [id number] Screw Bn T8 Ft St Lc 2.7x18mm - [id number] Implanted:Qty: 1 on 06/27/2023 by Kaylin Evans DPM at OR [facility] Right: Foot LUISA : ORTHOPAEDICS [id number] / / documented as of this encounter Advance Directives Documents on File Type Date Recorded 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 No Full Code 03/23/2015 1:50 PM 03/24/2015 5:02 PM This or chela reflects the patients wishes and were consensually agreed upon. Question Answer Comments Discussion of Advance Directives occurred with: Patient Does the patient have a Living Will? No Does the patient have Health Care Power of Bolter Helper? No Full Code 03/23/2015 6:23 AM 03/23/2015 1:50 PM This or chela reflects the patients wishes and were consensually agreed upon. Question Answer Comments Discussion of Advance Directives occurred with: Not Discussed Does the patient have a Living Will? No Does the patient have Health Care Power of Bolter Helper? No Care Teams Commercial Plumber Relationship Specialty Start Date End Date Edwin Zapata MD [address] [place] [address] PCP - General Family Medicine 12/13/20 documented as of this encounter
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
--- OUTSIDE RECORDS SUMMARY | 2023-12-17 04:08 | External Medical Summary | Summary of Care ---
Author Name Unknown Organization [facility] Address [address] [place] [address] Phone [phone] Care Team Providers Care Email Production Consultant Name Role Phone Edwin Zapata MD Primary Care Provider [phone] Reason for Visit * Reason Comments Outpatient Testing Encounter Details Date Type Department Care Team (Late st Contact Info) Description 09/03/2023 2:10 PM EST Laboratory Laboratory, [facility] [address] [place] [address] [facility] [address] [place] [address] DM type 2, not at goal ([facility])*; HTN, goal below 140/90; Type 2 diabetes mellitus with hemoglobin A1c goal of less than 8.0% ([facility]); HTN, goal below 130/80 Allergies Active Allergy Reactions Criticality Noted Date Comments Lisinopril Cough 08/03/2014 Tetanus Antitoxin Anaphylaxis High 03/17/1998 Throat swells shut Tetanus Toxoid Anaphylaxis High 03/29/2018 documented as of this encounter (statuses as of 09/03/2023) Medications Medication Sig Dispensed Refills Start Date End Date Status Insulin Aspart 100 UNIT/ML Subcutaneous Solution (NovoLOG) 40 Units by Device route once as needed. 0 Active Dexcom G6 Sensor Use as directed. 0 Ac tive Dexcom G6 Transmitter Use as directed. 0 Active Fluticasone Propionate 50 MCG/ACT Nasal Suspension (Flonase Allergy Relief) Administer 1 [place] into nostril in the morning. 16 g 3 01/28/2023 Active Omnipod DASH Pods (Gen 4) change every 72 hrs 30 Each 3 04/22/2023 Active Losartan Potassium 25 MG Oral Tablet (Cozaar) Take 1 Tablet by mouth in the morning. 90 Tablet 3 05/06/2023 Active oxyCODONE-Acetamin ophen 5-325 MG Oral Tablet [...] 3 days.) 70 mL 3 08/29/2023 Active documented as of this encounter (statuses as of 09/03/2023) Active Problems Problem Noted Date Diagnosed Date [...] as of this encounter (statuses as of 09/03/2023) Resolved Problems Problem Noted Date Diagnosed Date [...] as of this encounter (statuses as of 09/03/2023) Social History Tobacco Use Types Packs/Day Years [...] No 03/29/2018 documented as of this encounter Plan of Treatment Upcoming Encounters Date Type Department Care Team (Late st Contact Info) Description 09/04/2023 1:30 PM EST Imaging Radiology [facility] 1st Floor, [place] [address] [place] [address] 09/04/2023 2:00 PM EST Imaging Radiology [facility] [address] [facility] [place] [address] 10/04/2023 9:00 AM EST Nurse Only Ancillary [facility] [address] [facility] [place] [address] [facility], Nurse Annual Wellness [facility] [address] [facility] [place] [address] 10/22/2023 8:00 AM EST Office Visit Podiatry [facility] [address] [place] [phone] Kaylin Evans DPM [address] [place] [address] 11/06/2023 7:40 AM EST Office Visit Family Practice [facility] [address] [place] [id number] Edwin Zapata MD [address] [place] [id number] Pending Results Name Type Priority Associated Diagnoses Date /Time LDL CHOLESTEROL (DIRECT MEASURE) Lab Routine DM type 2, not at goal (HCC) HTN, goal below 140/90 09/03/2023 2:09 PM EST LIPID PANEL WITH DIRECT LDL IF TG IS HIGH Lab Routine DM type 2, not at goal (HCC) HTN, goal below 140/90 09/03/2023 2:09 PM EST APOLIPOPROTEIN B Lab Routine DM type 2, not at goal (HCC) HTN, goal below 140/90 09/03/2023 2:09 PM EST LIPOPROTEIN (A) Lab Routine DM type 2, not at goal (HCC) HTN, goal below 140/90 09/03/2023 2:09 PM EST HEMOGLOBIN A1C Lab Routine Type 2 diabetes mellitus with hemoglobin A1c goal of less than 8.0% (HCC) 09/03/2023 2:09 PM EST ALBUMIN / CREATININE RATIO, URINE Lab Routine HTN, goal below 130/80 09/03/2023 2:21 PM EST Scheduled Orders Name Type Priority Associated Diagnoses Orde r Schedule LDL CHOLESTEROL (DIRECT MEASURE) Lab Routine DM type 2, not at goal (HCC) HTN, goal below 140/90 Expected: 09/03/2023, Expires: 09/03/2024 LIPID PANEL WITH DIRECT LDL IF TG IS HIGH Lab Routine DM type 2, not at goal (HCC) HTN, goal below 140/90 Expected: 09/03/2023, Expires: 09/03/2024 APOLIPOPROTEIN B Lab Routine DM type 2, not at goal (HCC) HTN, goal below 140/90 Expected: 09/03/2023, Expires: 09/03/2024 LIPOPROTEIN (A) Lab Routine DM type 2, not at goal (HCC) HTN, goal below 140/90 Expected: 09/03/2023, Expires: 09/03/2024 Scheduled Procedures Name Priority Associated Diagnoses Date/Ti me COLONOSCOPY FLEXIBLE PROXIMAL DIAGNOSTIC Recall History of colon polyps Health Maintenance Due Date Last Done Comments DXA Scan 1955 COVID-19 Vaccine (#1) 1955 Pneumococcal Vaccine: 65+ Years (1 - PCV) 02/13/1962 Diabetic Foot Exam 02/13/1974 Zoster Vaccines (1 of 2) 02/13/2006 Hepatitis B (1 of 3 - Risk 3-dose series) 2016 HbA1c 03/12/2023 09/11/2022, 02/0 12/2021, 08/02/2021, Additional history exists Depression Screening 10/03/2023 10/03/2022 Mammogram 11/05/2023 11/05/2022, 12/2021, 10/26/2020, Additional history exists Diabetic Eye Exam 04/15/2024 04/15/2023, 10/02/2021 GFR 04/30/2024 04/30/2023, 08/24, 12/28/2021, Additional history exists COLONOSCOPY-EVERY 5 YRS AGES 18-100 06/05/2024 06/05/2019, 06/05/2019, 07/09/2017, Additional history exists Albumin/Creatinine Ratio 07/29/2024 07/29/2023, 12/2021 Lipid Panel 10/27/2026 10/27/2021, 03/2018, 03/30/2016, Additional history exists GARDASIL-HPV IMMUNIZATION SERIES Aged Out No longer eligible based on patient's age to complete this topic MENINGOCOCCAL (MENACTRA/MENVEO) Aged Out No longer eligible based on patient's age to complete this topic documented as of this encounter Medical Devices Implanted Type Area Fuel Conversion Technician Device Identifier Shelf Expiration Date Model / Serial / Lot 4.0 X 16mm Fixed Screw Implanted:Qty: 2 on 03/23/2015 by Alex Rick MD [place] [facility] [place]: Spine Cervical Medtronic [id number] / / Screw Dolores 6 [id number] - [id number] Implanted:Qty: 1 on 04/04/2018 by Inez Torres MD at [place] [facility] [place]/A: Maxilla SYNTHES MAXILLOFACIAL .236 .01 / / System Implant Speedbridge - [id number] - [id number] Implanted:Qty: 1 on 05/19/2018 by Desean Santana DO at OR [facility] Left: Shoulder [employer] 02/21/2020 AR-[id number] -4 / AR-2600SBS -4 / [id number] Sheeting Silicone .040 - [id number] Implanted:Qty: 1 on 08/13/2018 by Inez Torres MD at [place] [facility] [place]/A: Nose ALLIED BIOMEDICAL 07/23/2022 23-700- 40 / / [id number] Screw Bn T8 [address]t [address] Lc 2.7x18mm - [id number] Implanted:Qty: 1 on 06/27/2023 by Kaylin Evans DPM at OR [facility] Right: Foot LUISA : ORTHOPAEDICS [id number] / / documented as of this encounter Visit Diagnoses Diagnosis DM type 2, not at goal ([facility])- Primary Type II or unspecified type diabetes mellitus without mention of complication, not stated as uncontrolled HTN, goal below 140/90 Unspecified essential hypertension Type 2 diabetes mellitus with hemoglobin A1c goal of less than 8.0% (HCC) HTN, goal below 130/80 Unspecified essential hypertension documented in this encounter Advance Directives Documents on File Type Date Recorded Patient Community Facilitator Expl anation Advance Directives and Living Will [...] the patient have Health Care Power of Director Of Event Sales? No Full Code 03/23/2015 1:50 PM 03/24/2015 5:02 PM This or chela reflects the patients wishes and were consensually agreed upon. Question Answer Comments Discussion of Advance Directives occurred with: Patient Does the patient have a Living Will? No Does the patient have Health Care Power of Director Of Event Sales? No Full Code 03/23/2015 6:23 AM 03/23/2015 1:50 PM This or chela reflects the patients wishes and were consensually agreed upon. Question Answer Comments Discussion of Advance Directives occurred with: Not Discussed Does the patient have a Living Will? No Does the patient have Health Care Power of Director Of Event Sales? No Care Teams Email Production Consultant Relationship Specialty Start Date End Date Edwin Zapata MD [address] [facility] [place] [id number] PCP - General Family Medicine 12/13/20 documented as of this encounter
--- OUTSIDE RECORDS SUMMARY | 2023-12-17 04:08 | External Medical Summary ---
Author Name Unknown Address Unknown Organization [id number]:LABORATORY [facility] [place] - [address] [place] [address] Laboratory Report Ordering Provider Test Date Status RUPERTO TOLEDO 09/03/2023 14:09:29 Final Observation Date Value Abnormality Reference (Units ) Status LDL, (direct) 09/03/2023 14:09:29 107 <=129 (mg/dL) Final LDL Cholesterol Reference Ra nges (mg/dL):
<70 Target level for high risk ASCVD patient
<100 Optimal for general population
100-129 Near optimal for general population
130-159 Borderline high
160-189 High
>=190 Very high Performing Location LABORATORY [facility] - [address] [place] [address]
--- OUTSIDE RECORDS SUMMARY | 2023-12-17 04:08 | External Medical Summary ---
Author Name Unknown Address Unknown Organization : Laboratory Report Ordering Provider Test Date Status RUPERTO TOLEDO 09/03/2023 14:09:29 Final Observation Date Value Abnormality Reference (Units ) Status Apolipoprotein B 09/03/2023 14:09:29 74 <90 (mg/dL) Final Reference Range: <90
Ris k Category:
Optimal < 90
Moderate 90 - 119
High > or = 120
Cardiovascular event risk category cut points
(optimal, moderate, high) are based on National
Lipid Association recommendations-Geno TA et al.
J Clin Lipid. 2015;9:129-169 and Yovany MARKS et al.
Endocr Pract. 2017;23(Suppl 2):1-87.

Test Performed at:
[facility]
[address] [place] [address]
Saman Vieira M.D., Ph.D.,Director of Laboratories Performing Location
--- OUTSIDE RECORDS SUMMARY | 2023-12-17 04:08 | External Medical Summary ---
Author Name Unknown Address Unknown Organization [id number][place] [facility] [place] [address] [place] [address] Laboratory Report Ordering Provider Test Date Status VILMA TOLEDOOR 09/03/2023 14:09:29 Final Observation Date Value Abnormality Reference (Units ) Status Triglyceride 09/03/2023 14:09:29 95 <=174 ( mg/dL) Final Triglyceride Reference Range s (mg/dL):
<150 Acceptable
150-174 Borderline high
175-499 High
>=500 Very high Cholesterol 09/03/2023 14:09:29 206 Above high normal <200 (mg/dL) Final Total Cholesterol Reference Ranges (mg/dL):
<200 Desirable
200-239 Borderline high
>=240 High HDL 09/03/2023 14:09:29 94 >49 (mg/dL ) Final HDL Cholesterol Reference Ra nges (mg/dL):
>=60 High (Desirable)
<50 Low (Undesirable) For Females
<40 Low (Undesirable) For Males NON-HDL CHOLESTEROL 09/03/2023 14:09:29 112 <=159 (mg/dL) Final Non-HDL Cholesterol Referenc e Range (mg/dL):
<100 Target level for high risk ASCVD patient
<130 Optimal for general population
130-159 Near optimal for general population
160-189 Borderline High
190-219 High
>=220 Very High LDL, (calculated) 09/03/2023 14:09:29 93 <= 129 (mg/dL) Final LDL Cholesterol Reference Ra nges (mg/dL):
<70 Target level for high risk ASCVD patient
<100 Optimal for general population
100-129 Near optimal for general population
130-159 Borderline high
160-189 High
>=190 Very high Performing Location [facility] [place] [address] [facility] [place] [address]
--- OUTSIDE RECORDS SUMMARY | 2023-12-17 04:09 | External Medical Summary ---
Author Name Unknown Address Unknown Organization : Laboratory Report Ordering Provider Test Date Status RUPERTO TOLEDO 09/03/2023 14:09:29 Final Observation Date Value Abnormality Reference (Units ) Status Lipoprotein A 09/03/2023 14:09:29 17 <75 (n mol/L) Final Risk Category
Optimal < 75 nmol/L
Moderate 75 - 125 nmol/L
High > 125 nmol/L
Cardiovascular event risk category cut points
(optimal, moderate, high) are based on Usha Cooper
JAC 2017;69:692-711.

Test Performed at:
[employer] [facility]
[address] [place] [address]
Saman Vieira M.D., Ph.D.,Director of Laboratories Performing Location
[2023-12-17] MEDS: INSULIN ASPART PER UNIT CHARGE SC ONE (04:45)
[2023-12-17 06:20] LABS: Hematocrit (blood only) 36.7 % (37.0-47.0); Hemoglobin 12.7 g/dl (12.0-16.0); Mean Corpuscular Hemoglobin 30.2 pg (25.0-34.0); Mean Corpuscular Hgb Conc 34.6 g/dL (32.0-36.0); Mean Corpuscular Volume 87.2 fL (80.0-100.0); Mean Platelet Volume 9.3 fL (9.4-12.4); Platelet Count 279 K/uL (130-400); RDW Standard Deviation 40.8 fL (36.4-46.3); Red Blood Count 4.21 M/uL (4.20-5.40); White Blood Count 6.48 K/ul (4.8-10.8)
[2023-12-17 06:41] LABS: Albumin Globulin Ratio 1.4 (0.9-2); BUN Creatinine Ratio 21.6 (10-20); Calcium 9.2 mg/dl (8.6-10.3); Creatinine Clr Calc Pharmacy 81.6 ml/min; Est GFR (African American) 97.2 ml/min; Est GFR (Non-African American) 83.8 ml/min; Globulin 2.9 gm/dl (2.5-4.0); Magnesium 2.3 mg/dl (1.7-2.4); Phosphorus 3.6 mg/dl (2.5-4.9); Potassium 3.8 mmol/L (3.5-5.1); Total Protein 6.9 gm/dl (6.0-8.3)
[2023-12-17 06:42] LABS: Troponin I High Sensitivity 6.6 pg/ml (0-14)
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
[2023-12-17] MEDS: METOPROLOL TARTRATE 25 MG TAB PO SCH (08:35)
[2023-12-17] MEDS: ATORVASTATIN 40 MG TAB PO SCH (08:35)
[2023-12-17] MEDS: LOSARTAN POTASSIUM 50 MG TAB PO SCH (08:35)
[2023-12-17] MEDS: POTASSIUM CHLORIDE CRTAB 20 MEQ TABCR PO STA (08:35)
[2023-12-17] MEDS ORDERED: hydrALAZINE HCL 20 MG/ML VIAL IV PRN (09:43)
--- NOTE | 2023-12-17 11:41 | Neurology Consultation ---
Date of Consultation December 17, 2023 Assessment & Plan (1) Left sided numbness: Acute on chronic left facial numbness in the setting of HTN. I do not suspect this was a stroke or TIA, nor a TNK aborted stroke. Perhaps reasonable to consider hypertensive urgency or a migraine variant. Recommend she does go home with aspirin 81mg daily as monotherapy for her ASCVD risk. -- Aspirin 81mg daily for ASCVD risk -- Continue vascular risk factor reduction through PCP -- Can be discharged from our perspective after the [address] Telehealth Consultation Telehealth Information Telehealth Information: I performed this visit using a real-time telehealth connection between my location and the patients location ([facility]). After connecting through interactive tele-video, patient was identified by name and date of and/or wristband check.Patient (or authorized healthcare welding equipment sales representative) was informed that this was a telemedicine visit and it was being conducted confidentially over secure lines. My office door was closed and no one else was present in the room with me.Patient (or authorized healthcare welding equipment sales representative) provided consent to proceed with the visit, expressed an u nderstanding of privacy and security of the telemedicine visit, and gave permission to have a hospital welding equipment sales representative in the room in order to assist with the visit and to conduct portions of the visit, as needed. I informed the patient (or authorized healthcare welding equipment sales representative) that I reviewed their record and presented the opportunity for them to ask any questions regarding the visit today. The patient agreed to participate. History of Present Illness Reason for Consultation: L facial numbness Requesting Physician: Dr. Henriquez Attending Physician: Khai Henriquez MD History of Present Illness Eboni Ordoñez is a 68 yo with a history of chronic L facial numbness. Yesterday, she presented to [facility] with worsening of her baseline L facial numbness, slurred speech and tingling of her L arm in the setting of HTN and headache. She was given TNK complicated by epistaxis that has since resolved. Today she reports that the numbness of her face is back to the baseline level. She denies any new symptoms and is anxious to return home. She was not taking any aspirin or antiplatelet therapy prior to this event. No history of migraine and reports that her headache yesterday was in association with the epistaxis. Allergies Allergy/AdvReac Type Severity Reaction Status Date / Time tetanus toxoid, adsorbed Allergy Intermediate ARMS FACE Verified 12/16/23 15:56 AND NECK SWELLS UP lisinopril Allergy Unknown cough Verified 12/16/23 15:56 metformin AdvReac severe Verified 12/16/23 15:56 diarrhea Home Medications Medication Instructions Recorded Confirmed Type sodium chloride 0.65 % nasal spray 1 spray intranasal TID 12/06/20 12/16/23 History aerosol (Saline Nasal) pen needle, diabetic 32 gauge x #100 ea 10/04/21 08/28/23 Rx 5/32" (BD Ultra-Fine Hellen Pen Needle) losartan 100 mg tablet 100 mg PO DAILY 08/28/23 12/16/23 History insulin aspart U-100 100 unit/mL 70 unit (0.7 mL) subcut DAILY 90 08/29/23 12/16/23 Rx subcutaneous solution (Novolog days #70 mL U-100 Insulin aspart) insulin glargine 100 unit/mL (3 25 unit (0.25 mL) subcut DAILY #15 08/29/23 12/16/23 Rx mL) subcutaneous pen (Lantus mL Solostar U-100 Insulin) atorvastatin 10 mg tablet 10 mg PO DAILY #30 tabs 09/12/23 12/16/23 Rx insulin pump cartridge,automated #1 ea 12/09/23 Rx dose,BT with controller subcutaneous (Omnipod 5 G6 Intro Kit (Gen 5) subcutaneous cartridge with controller) insulin pump cart,automated,BT #45 ea 12/10/23 Rx (Omnipod 5 G6 Pods (Gen 5) subcutaneous cartridge) Patient History Medical History Controlled type 2 diabetes mellitus Breast cancer (11/25/14) "Status post abnormal right breast mammogram Status post ultrasound-guided biopsy 11/25/2014 revealing infiltrating ductal carcinoma Estrogen receptor, progesterone receptor positive, and HER-2/claritza negative Status post lumpectomy and sentinel lymph node biopsy 12/29/2014 Stage [id number] Status post completion of radiation therapy to the right breast excisional cavity utilizing accelerated partial breast treatment completed 03/11/2015 received 3850 cGy" Hypertension Surgical History H/O colonoscopy H/O tubal ligation H/O: History of parotid gland removal History of appendectomy History of partial hysterectomy History of carpal tunnel surgery Family History Father Heart disease ID in his late 50s, CABG x 3 Diabetes Sister Heart disease ID at age 50 Social History Smoking Status: Never smoker Hx Alcohol Use: No Hx Substance Use: No Preferred Language: Kuwaiti Communication Ability: Effective Production Roustabout Required: No Beliefs That Will Affect Care: None Current Living Situation: Spouse current occupational status: retired Feels Safe at Home: Yes Safety Concerns: Feels Safe At This Time caffeine: Yes Physical Activity Frequency: Daily Assistive Devices: Glasses Review of Systems +L facial numbness Physical Exam Neurological Examination: Mental Status: Awake and alert. Oriented to person, place, and time. Fluent. Comprehension intact. Affect appropriate. Cranial Nerves: III/IV/: Versions intact without nystagmus, no gaze preference. VII: Facial expression chronically reduced on the L Motor: Strength was symmetric and antigravity throughout. Pronator drift was absent. There were no abnormal movements. Sensory: Reduced L facial sensation crossing midline at the chin Reflexes: Unable to assess over telemedicine Results & Data Vital Signs (Past 12 Hours) Vital Signs Temp Pulse Pulse Resp BP BP Pulse Ox 12/17/23 11:00 36.7 C 67 12 125/61 96 12/17/23 10:00 36.7 C 74 14 125/63 97 12/17/23 09:00 36.8 C 77 16 178/84 H 98 12/17/23 08:00 36.7 C 78 12 166/78 H 98 12/17/23 07:00 36.7 C 79 14 171/79 H 97 12/17/23 06:31 168/79 H 12/17/23 06:31 75 14 98 12/17/23 06:30 71 12 96 12/17/23 06:01 175/85 H 12/17/23 06:01 75 11 L 97 12/17/23 06:00 77 14 97 12/17/23 05:31 126/60 12/17/23 05:31 95 H 11 L 97 12/17/23 05:30 71 12 97 12/17/23 05:00 147/74 H 12/17/23 05:00 74 13 96 12/17/23 05:00 36.7 C 12/17/23 04:31 76 13 98 12/17/23 04:31 162/108 H 12/17/23 04:30 84 13 98 12/17/23 04:00 36.8 C 12/17/23 04:00 196/84 H 12/17/23 04:00 67 14 99 12/17/23 03:30 69 12 98 12/17/23 03:30 168/92 H 12/17/23 03:01 174/71 H 12/17/23 03:01 79 18 96 12/17/23 03:00 36.8 C 12/17/23 03:00 64 11 L 96 12/17/23 02:31 135/68 12/17/23 02:31 69 12 96 12/17/23 02:30 71 14 97 12/17/23 02:01 151/66 H 12/17/23 02:01 65 11 L 95 12/17/23 02:00 36.6 C 12/17/23 02:00 67 9 L 95 12/17/23 01:30 69 11 L 96 12/17/23 01:30 120/85 12/17/23 01:00 36.7 C 12/17/23 01:00 74 10 L 95 12/17/23 01:00 125/69 12/17/23 00:31 68 18 96 12/17/23 00:31 131/53 L 12/17/23 00:30 36.6 C 12/17/23 00:30 70 16 94 12/17/23 00:00 36.6 C 12/17/23 00:00 157/64 H 12/17/23 00:00 64 12 97 12/17/23 00:00 72 12/16/23 23:37 143/72 H 12/16/23 23:37 75 18 O2 Del Method 12/17/23 11:00 Room Air 12/17/23 10:00 Room Air 12/17/23 09:00 Room Air 12/17/23 08:00 Room Air 12/17/23 07:00 Room Air 12/17/23 06:31 12/17/23 06:31 12/17/23 06:30 12/17/23 06:01 12/17/23 06:01 12/17/23 06:00 12/17/23 05:31 12/17/23 05:31 12/17/23 05:30 12/17/23 05:00 12/17/23 05:00 12/17/23 05:00 12/17/23 04:31 12/17/23 04:31 12/17/23 04:30 12/17/23 04:00 12/17/23 04:00 12/17/23 04:00 Room Air 12/17/23 03:30 Room Air 12/17/23 03:30 12/17/23 03:01 12/17/23 03:01 Room Air 12/17/23 03:00 12/17/23 03:00 Room Air 12/17/23 02:31 12/17/23 02:31 Room Air 12/17/23 02:30 Room Air 12/17/23 02:01 12/17/23 02:01 Room Air 12/17/23 02:00 12/17/23 02:00 Room Air 12/17/23 01:30 Room Air 12/17/23 01:30 12/17/23 01:00 12/17/23 01:00 Room Air 12/17/23 01:00 12/17/23 00:31 Room Air 12/17/23 00:31 12/17/23 00:30 12/17/23 00:30 Room Air 12/17/23 00:00 12/17/23 00:00 12/17/23 00:00 Room Air 12/17/23 00:00 12/16/23 23:37 12/16/23 23:37 Laboratory Results Abnormal lab results 12/16/23 12/16/23 12/17/23 Range/Units 15:25 20:17 00:21 Hct (37.0-47.0) % MPV 9.0 L (9.4-12.4) fL BUN/Creatinine Ratio (10-20) Glucose (70-99(Fasting)) mg/dl POC Glucose 119 H 122 H (70-99) mg/dl 12/17/23 Range/Units 05:53 Hct 36.7 L (37.0-47.0) % MPV 9.3 L (9.4-12.4) fL BUN/Creatinine Ratio 21.6 H (10-20) Glucose 105 H (70-99(Fasting)) mg/dl POC Glucose (70-99) mg/dl Diagnostic Findings MRI brain - Unremarkable
--- NOTE | 2023-12-17 12:48 | Pharmacy Report ---
Pharmacy Glycemic Sign Off Nt - Date of Service December 17, 2023 - Assessment & Plan ASSESSMENT: * Pharmacy was consulted by Dr Vaughn on 12/18 for glycemic control and to write orders per [facility] inpatient glycemic control protocol after insulin pump removed for MRI. * No major changes made by pharmacy to antidiabetic regimen, novolog insulin was initiated for overnight. * Discussed with Surface Supervisor plan was to resume insulin pump @1700 (24 hours post TNKase), however, patient applied and resumed insulin pump after daughter brought in supplies around 1000. * Will transition back to patient managed insulin pump. PLAN FOR INPATIENT GLYCEMIC CONTROL: * Continue patient managed omnipod. * Pharmacy is signing off of glycemic consult and will no longer be making adjustments to inpatient regimen. Please feel free to re-consult if needed. Thank you.
--- NOTE | 2023-12-17 13:19 | Electrocardiogram Report ---
Test Reason : Blood Pressure : / mmHG Vent. Rate : 073 BPM Atrial Rate : 073 BPM P-R Int : 134 ms QRS Dur : 084 ms QT Int : 422 ms P-R-T Axes : 015 043 092 degrees QTc Int : 464 ms Normal sinus rhythm Nonspecific T wave abnormality Abnormal ECG When compared with ECG of 16-DEC-2023 15:20, Nonspecific T wave abnormality now evident in Anterolateral leads Confirmed by Shaheen Durham ([id number]) on 12/17/2023 1:19:02 PM Referred By: REFERRED SELF Confirmed By:Shaheen Durham
--- NOTE | 2023-12-17 17:44 | CT Scan Report ---
CT head/brain wo con CLINICAL HISTORY: 24 hr post-TNK administration Technique: Contiguous axial CT images of the head were acquired from the base of the skull to the roxanna angela without intravenous contrast administration. Images were viewed in brain, subdural and bone [facility]. Automated dose lowering techniques and/or adjustment according to patient size were utilized for this exam. Comparison: None available at the time of this dictation. Findings: The ventricles, basal cisterns, and cerebral sulci are normal. There is no acute intracranial hemorrh age or evidence of acute territorial infarction. Neither mass effect, shift of the midline structures , nor abnormal extra-axial fluid collections are shown. Imaged portions of the paranasal sinuses and mastoid air cells are clear. The orbits appear normal. There are no acute fractures of the calvaria or scalp swelling. Impression: No acute intracranial hemorrhage, no evidence of acute territorial infarction or other acute intracra nial disease process. ACT 112: Negative or not required by law. Electronically signed by: Ronaldo Mattson M.D. 12/17/2023 5:43 PM
--- NOTE | 2023-12-17 17:46 | Discharge Summary ---
Date of Service December 17, 2023 Admission HPI Per Admitting Provider 68-year-old male with history of diabetes, hypertension, who presented to ED from PCP office for chest tightness. She had ongoing chest tightness for 2 weeks, more with exertion. She went to see her PCP today for the same. Per patient, she was found to have abnormal EKG and sent to the emergency. On presentation, she complained of left-sided numbness for which stroke alert was called. She was seen by teleneurology and was given TNK. CT head, CT head and neck was unremarkable. Post TNK, patient started to have left-sided epistaxis which was difficult to control with pressure application and left nasal packing was sent by ED physician. She was also found to have uncontrolled hypertension post TNK which was responsive to IV labetalol and hydralazine, for which Cardene drip was started. States her new numbness did not improve after tPA and chest tightness is about the same. Denies any oral neurological symptoms. Other review of system is unremarkable. Patient was transferred to ICU. I spoke to the ED physician and nursing education consultant regarding the case. Daughter was at bedside. Admission Exam Per Admitting Provider General: Sitting up in bed, left sided epistaxis HEENT: EOMI, BOYD, MMM Chest: Clear breath sounds bilaterally, no wheezes or crackles CVS: Regular rate and rhythm, normal heart sounds, no murmur Abdomen: Soft, non tender, not distended, normal bowel sounds Neuro: Awake, alert, oriented, conversing well Extremities: No cyanosis, clubbing or edema Principal Diagnosis Strokelike symptoms Uncontrolled hypertension Discharge Exam General: Sitting up in bed, left sided nasal packing HEENT: EOMI, BOYD, MMM Chest: Clear breath sounds bilaterally, no wheezes or crackles CVS: Regular rate and rhythm, normal heart sounds, no murmur Abdomen: Soft, non tender, not distended, normal bowel sounds Neuro: Awake, alert, oriented, conversing well Extremities: No cyanosis, clubbing or edema Discharge Data Allergies Allergy/AdvReac Type Severity Reaction Status Date / Time tetanus toxoid, adsorbed Allergy Intermediate ARMS FACE Verified 12/16/23 15:56 AND NECK SWELLS UP lisinopril Allergy Unknown cough Verified 12/16/23 15:56 metformin AdvReac severe Verified 12/16/23 15:56 diarrhea Consultations 12/16/23 17:14 ED Decision to Admit Stat 12/16/23 17:19 Consult Product Steward Stat 12/16/23 18:49 Consult Product Steward Routine 12/16/23 20:26 Consult Neurology Routine Ordered Studies 12/16/23 15:19 CT angio chest PE protocol Stat 12/16/23 15:20 CT angio head w con Stat CT angio neck with con Stat CT head/brain wo con Stat 12/16/23 18:58 CT head/brain wo con Stat 12/16/23 21:48 MRI Brain [MR brain wo con] Routine 12/17/23 17:00 CT head/brain wo con Routine Hospital Course (1) Stroke-like symptoms: (2) Left sided numbness: (3) Acute anterior epistaxis: (4) Uncontrolled hypertension: (5) Chest pain: (6) Controlled type 2 diabetes mellitus: (7) Dyslipidemia: Plan Per prior attending with addendum: 68-year-old female with history of hypertension, diabetes mellitus presents from PCP office for chest tightness and complaint of of left-sided numbness for which stroke alert was called and is status post TNK, which is complicated by epistaxis and uncontrolled hypertension Strokelike symptoms s/p TNK- seen by tele neuro. CT head, CTA head and neck unremarkable. MRI brain pending. Monitor in ICU post TNK. Repeat CT head in 24 hours. Consult neurology and nursing education consultant. Further management per nursing education consultant and neuro. Hold ASA post TNK. Continue lipitor. Epistaxis- post TNK- s/p anterior nasal packing by ED physician with control of epistaxis. Further management per nursing education consultant Uncontrolled HTN post TNK- didn't respond to iv labetalol and HLZ. Started on ni cardipine drip with improvement. She did take her losartan this morning and resumed for tomorrow. Further management per nursing education consultant. Chest tightness- Trend trop. Monitor on tele. Get echo. DM-2 on insulin pump- Accucheck. Glycemic pharmacist consulted. DVT ppx- SCDs. S/p TNK today Dispo- ICU Full code Updated daughter at bedside Time spent-approximately 87 minutes Addendum 12/17/2023: Patient was seen and examined at bedside as a follow-up of left-sided numbness and uncontrolled hypertension. Patient underwent TNK administration yesterday, repeat CT head at 24-hour jenni with no bleed [discussed with radiology]. Patient is off of nicardipine drip since morning, metoprolol has been added for blood pressure control, blood pressure has been fairly under control. Patient's left nasal packing has been removed in the morning, bleeding has stabilized, hemoglobin has been stable. Patient with no new focal weakness or numbness or tingling or headache. Patient is hemodynamically stable and would like to go home today. Patient's and daughter were at bedside in the morning exam. Patient is being discharged with following instruction at the point of discharge: Follow-up with your primary care physician within a week time and likely you will need labs CBC/CMP/magnesium/phosphorus. You were evaluated for left-sided numbness and you underwent TNK administration. It was complicated by nasal bleed. If your nasal bleeding continues or worsens, refer to your PCP office or emergency immediately. If you have any new headache or worsening headache, refer to your emergency or PCP immediately. If you have any new focal weakness or numbness or tingling, report to your emergency or PCP immediately. You will be discharged on aspirin 81 mg daily for cardiovascular risks. Start from tomorrow morning. Because your blood pressure were high, metoprolol has been added on top of your prior to arrival losartan. Please measure your blood pressure twice a day, maintain a log to take to your primary care physician so that they can continue to manage/adjust your blood pressure medication. Take your medications as prescribed. Please make sure that you are able to get your medications today by calling your pharmacy before you leave the hospital so that your treatment continuity is not broken. Home Health Attestation I certify that this patient is under my care and that I, or a physicians expanded function dental assistant working with me, had a face to-face encounter that meets the home health [id number] encounter requirements with this patient. The encounter with the patient was in whole, or in part, for the following medical condition, which is the primary reason for home health care (list medical condition): I certify that, based on my findings, the following services are medically necessary home health services: My clinical findings support the need for the above services because: Further, I certify that my clinical findings support that this patient is homebound (i.e. absences from home require considerable and taxing effort and are for medical reasons or jainism services or infrequently or of short duration when for other reasons) because: Certification for Home Health Services: Based on the above findings, I certify that this patient is confined to the home and needs intermittent usp care, physical therapy and/or speech therapy or continues to need occupational therapy. The patient is under my care, and I have initiated the establishment of the plan of care. This patient will be followed by a physician who will periodically review the plan of care. Total Time Total Time Spent Total Time Spent (In Minutes): 45 Discharge Plan Discharge Items Patient Disposition: Home - Self-Care Reason For Visit: STROKE LIKE SYMPTOMS Discharge Diagnosis: Strokelike symptoms Uncontrolled hypertension Activity: Resume your previous activity Non-emergency contact: Primary Care Provider Call non-emergency contact if: you have any medication questions, your symptoms worsen and your temperature is above 101.5 Follow-up/Referrals: Edwin Zapata MD [Primary Care Provider] - Diet: Carb Consistent or DM2, Heart Healthy and Low Sodium (2gm) Addtl Attending Provider Instructions: Follow-up with your primary care physician within a week time and likely you will need labs CBC/CMP/magnesium/phosphorus. You were evaluated for left-sided numbness and you underwent TNK administration. It was complicated by nasal bleed. If your nasal bleeding continues or worsens, refer to your PCP office or emergency immediately. If you have any new headache or worsening headache, refer to your emergency or PCP immediately. If you have any new focal weakness or numbness or tingling, report to your emergency or PCP immediately. You will be discharged on aspirin 81 mg daily for cardiovascular risks. Start from tomorrow morning. Because your blood pressure were high, metoprolol has been added on top of your prior to arrival losartan. Please measure your blood pressure twice a day, maintain a log to take to your primary care physician so that they can continue to manage/adjust your blood pressure medication. Take your medications as prescribed. Please make sure that you are able to get your medications today by calling your pharmacy before you leave the hospital so that your treatment continuity is not broken. Pending Studies at Discharge: No Stand-Alone Forms: My Race Yourself, Smoking Cessation Medications and DC Order Prescriptions: New atorvastatin 40 mg Tablet 40 mg PO DAILY Qty: 30 0RF metoprolol tartrate 25 mg Tablet 25 mg PO BID Qty: 60 0RF aspirin 81 mg capsule 81 mg PO DAILY Qty: 30 0RF Continued (DME) pen needle, diabetic [BD Ultra-Fine Hellen Pen Needle] 32 gauge x 5/32" needle See Rx Instructions .Route Qty: 100 5RF Rx Instructions: use 3 x daily insulin aspart U-100 [Novolog U-100 Insulin aspart] 100 unit/mL solution 70 unit subcut DAILY 90 Days Qty: 70 3RF Rx Instructions: Fill Omni Pod 150 units every 3 days. insulin glargine [Lantus Solostar U-100 Insulin] 100 unit/mL (3 mL) insulin pen 25 unit subcut DAILY Qty: 15 2RF Rx Instructions: up to 25 units daily - in case of pump failure (DME) Omnipod 5 G6 Intro Kit (Gen 5) Cartridge See Rx Instructions .Route Qty: 1 0RF Rx Instructions: for use with Omnipod 5 pods (DME) Omnipod 5 G6 Pods (Gen 5) Cartridge See Rx Instructions .Route Qty: 45 3RF Rx Instructions: change pod every 48 hours losartan 100 mg tablet 100 mg PO DAILY Saline Nasal 0.65 % Aerosol,[place] 1 spray INTRANASAL TID Discontinued atorvastatin 10 mg tablet 10 mg PO DAILY Qty: 30 5RF Discharge Orders: Discharge Order (Routine); Ordered 12/17/23 Ordered By: Khai Henriquez Admission Data Admit Date/Time: 12/16/23 17:30 Attending Provider: Khai Henriquez Admit Provider: Sujit Vaughn Primary Care Provider: Edwin Zapata Other Providers: Diana Omalley; Sujit Vaughn; Emily Castellano
== END 2023-12-17 18:30 | disposition home or self-care (01) | DRG 92 ==
LOC: ED 15:02 → SUATTDRO 17:30 → 1E 17:30
DX: R51.9 Headache, unspecified; Z88.1 Allergy status to other antibiotic agents; R29.90 Unspecified symptoms and signs involving the nervous system; G45.9 Transient cerebral ischemic attack, unspecified; R07.89 Other chest pain; Z79.899 Other long term (current) drug therapy; Z88.7 Allergy status to serum and vaccine; I10 Essential (primary) hypertension; R04.0 Epistaxis; Z88.8 Allergy status to other drugs, medicaments and biological substances; Z79.4 Long term (current) use of insulin